=== PATIENT | female | born 1970 | race Caucasian/White ===

== ENCOUNTER 2021-01-23 11:41 | Inpatient (IN) | payer BC ==
[~2021-01-23] VITALS: Ht 167.7 cm; Wt 146.9 kg
[2021-01-23 12:35] LABS: BASOPHILS % (AUTO) 0 % (0-10); EOSINOPHILS % (AUTO) 0 % (0-10); HEMATOCRIT 45 % (35-52); HEMOGLOBIN 13.8 g/dL (11.5-16.0); LYMPHOCYTES # (AUTO) 1.4 10^3/uL (1.0-4.0); LYMPHOCYTES % (AUTO) 17 % (12-44); MEAN CORPUSCULAR HEMOGLOBIN 27 pg (25-34); MEAN CORPUSCULAR HGB CONC 31 g/dL (32-36); MEAN CORPUSCULAR VOLUME 90 fL (80-99); MEAN PLATELET VOLUME 9.6 fL (9.0-12.2); MONOCYTES # (AUTO) 0.3 10^3/uL (0.0-1.0); MONOCYTES % (AUTO) 4 % (0-12); NEUTROPHILS # (AUTO) 6.7 10^3/uL (1.8-7.8); NEUTROPHILS % (AUTO) 79 % (42-75); PLATELET COUNT 266 10^3/uL (130-400); WHITE BLOOD COUNT 8.6 10^3/uL (4.3-11.0)
--- NOTE | 2021-01-23 12:38 | ED General ---
General Chief Complaint: COVID19 Suspect/Confirmed Stated Complaint: COVID+ Source of Information: Patient Exam Limitations: No Limitations (DAVID CRANE APRN) History of Present Illness Date Seen by Provider: Jan 23, 2021 Time Seen by Provider: 12:35 Initial Comments To ER with reports that she is Covid positive and short of breath. She has a headache, poor appetite. This is day 10 of illness. Symptoms started on the and she tested positive on the . She is a non-smoker, not diabetic. She follows with [facility]. She is not vaccinated against Covid. Timing/Duration: 1-2 Days Severity: Moderate Associated Systoms: Denies Symptoms (DAVID CRANE APRN) Allergies and Home Medications Allergies Coded Allergies: Sulfa (Sulfonamide Antibiotics) (Verified Allergy, Unknown, 01/23/21) cantaloupe (Verified Allergy, Unknown, 01/24/21) eucalyptus (Verified Allergy, Unknown, 01/23/21) latex (Verified Allergy, Unknown, 01/23/21) Patient Home Medication List Home Medication List Reviewed: Yes (DAVID CRANE APRN) Cetirizine HCl (Zyrtec) 10 Mg Tablet, 10 MG PO DAILY, (Reported) Entered as Reported by: DELMI EVANS on 01/24/21 1041 Last Action: Reviewed Dexamethasone (Dexamethasone) 2 Mg Tablet, 2 MG PO DAILY Prescribed by: COLT MILLER on 02/01/21 1118 Insulin Determir (Levemir) 1,000 Units/10 Ml Soln, 10 UNIT SQ BID Prescribed by: COLT MILLER on 02/01/21 1118 Review of Systems Review of Systems Constitutional: see HPI, chills, fever, malaise, weakness EENTM: see HPI Respiratory: see HPI, cough, short of breath Cardiovascular: no symptoms reported Genitourinary: no symptoms reported Musculoskeletal: no symptoms reported Skin: no symptoms reported Psychiatric/Neurological: No Symptoms Reported Hematologic/Lymphatic: No Symptoms Reported Immunological/Allergic: no symptoms reported (DAVID CRANE APRN) Physical Exam Vital Signs Capillary Refill : (DAVID CRANE APRN) Height, Weight, BMI Height: '" Weight: lbs. oz. kg; BMI Method: General Appearance: No Apparent Distress, WD/WN, Obese, Other (Oxygen saturation 69% with good waveform on arrival. Increased to 90% with 6 L supplemental.) Neck: Full Range of Motion, Normal Inspection Respiratory: Normal Breath Sounds, No Accessory Muscle Use, No Respiratory Distress Cardiovascular: Regular Rate, Rhythm, Normal Peripheral Pulses Gastrointestinal: Normal Bowel Sounds, Non Tender, Soft Extremity: Normal Capillary Refill, Normal Inspection Neurologic/Psychiatric: Alert, Oriented x3 Skin: Normal Color, Warm/Dry (DAVID CRANE APRN) Focused Exam Lactate Level 01/23/21 12:20: Lactic Acid Level 1.69 (MOO CAPELLAN DO) Lactic Acid Level Laboratory Tests Test 01/23/21 12:20 Lactic Acid Level 1.69 MMOL/L (0.50-2.00) (MOO CAPELLAN DO) Progress/Results/Core Measures Suspected Sepsis SIRS Temperature: Pulse: Respiratory Rate: Laboratory Tests 01/23/21 12:20: White Blood Count 8.6 Blood Pressure / Mean: 01/23/21 12:20: Lactic Acid Level 1.69 Laboratory Tests 01/23/21 12:20: Creatinine 1.17, INR Comment 1.0, Platelet Count 266, Total Bilirubin 0.6 (DAVID CRANE APRN) Results/Orders Lab Results Laboratory Tests Test 01/23/21 10:24 01/23/21 12:20 Range/Units Urine Color YELLOW Urine Clarity SL CLOUDY Urine pH 6.0 5-9 Urine Specific [place] 1.020 1.016-1.022 Urine Protein NEGATIVE NEGATIVE Urine Glucose (UA) 2+ H NEGATIVE Urine Ketones NEGATIVE NEGATIVE Urine Nitrite NEGATIVE NEGATIVE Urine Bilirubin NEGATIVE NEGATIVE Urine Urobilinogen 0.2 < = 1.0 MG/DL Urine Leukocyte Esterase TRACE H NEGATIVE Urine RBC (Auto) 1+ H NEGATIVE Urine RBC 0-2 /HPF Urine WBC 0-2 /HPF Urine Squamous Epithelial Cells NONE /HPF Urine Renal Epithelial Cells NONE /HPF Urine Crystals NONE /LPF Urine Bacteria NEGATIVE /HPF Urine Casts NONE /LPF Urine Mucus NEGATIVE /LPF Urine Culture Indicated NO White Blood Count 8.6 4.3-11.0 10^3/uL Red Blood Count 5.03 3.80-5.11 10^6/uL Hemoglobin 13.8 11.5-16.0 g/dL Hematocrit 45 35-52 % Mean Corpuscular Volume 90 80-99 fL Mean Corpuscular Hemoglobin 27 25-34 pg Mean Corpuscular Hemoglobin Concent 31 L 32-36 g/dL Red Cell Distribution Width 14.5 10.0-14.5 % Platelet Count 266 130-400 10^3/uL Mean Platelet Volume 9.6 9.0-12.2 fL Immature Granulocyte % (Auto) 1 % Neutrophils (%) (Auto) 79 H 42-75 % Lymphocytes (%) (Auto) 17 12-44 % Monocytes (%) (Auto) 4 0-12 % Eosinophils (%) (Auto) 0 0-10 % Basophils (%) (Auto) 0 0-10 % Neutrophils # (Auto) 6.7 1.8-7.8 10^3/uL Lymphocytes # (Auto) 1.4 1.0-4.0 10^3/uL Monocytes # (Auto) 0.3 0.0-1.0 10^3/uL Eosinophils # (Auto) 0.0 0.0-0.3 10^3/uL Basophils # (Auto) 0.0 0.0-0.1 10^3/uL Immature Granulocyte # (Auto) 0.1 0.0-0.1 10^3/uL Prothrombin Time 14.0 12.2-14.7 SEC INR Comment 1.0 0.8-1.4 D-Dimer 1.44 H 0.00-0.49 UG/ML Sodium Level 135 135-145 MMOL/L Potassium Level 4.2 3.6-5.0 MMOL/L Chloride Level 96 L 98-107 MMOL/L Carbon Dioxide Level 26 21-32 MMOL/L Anion Gap 13 5-14 MMOL/L Blood Urea Nitrogen 18 7-18 MG/DL Creatinine 1.17 0.60-1.30 MG/DL Estimat Glomerular Filtration Rate 49 BUN/Creatinine Ratio 15 Glucose Level 187 H 70-105 MG/DL Lactic Acid Level 1.69 0.50-2.00 MMOL/L Calcium Level 9.0 8.5-10.1 MG/DL Corrected Calcium 9.4 8.5-10.1 MG/DL Total Bilirubin 0.6 0.1-1.0 MG/DL Aspartate Amino Transf (AST/SGOT) 71 H 5-34 U/L Alanine Aminotransferase (ALT/SGPT) 31 0-55 U/L Alkaline Phosphatase 72 40-136 U/L C-Reactive Protein High Sensitivity 25.34 H 0.00-0.50 MG/DL Total Protein 8.4 H 6.4-8.2 GM/DL Albumin 3.5 3.2-4.5 GM/DL Procalcitonin 0.45 H <0.10 NG/ML (MOO CAPELLAN DO) Micro Results Microbiology 01/23/21 Blood Culture - Final, Complete Staph, Coag Neg (QUALITY ASSURANCE INSPECTOR) (MOO CAPELLAN DO) Vital Signs/I&O Capillary Refill : (DAVID CRANE APRN) Diagnostic Imaging Diagonstic Imaging: Xray Comments NAME: HIEU FRIAS [facility] REC#: [id number] PT STATUS: REG ER : 1970 PHYSICIAN: DAVID CRANE APRN ADMIT DATE: 01/23/21/ER Draft Date of Exam:01/23/21 CHEST 1 VIEW, AP/PA ONLY INDICATION: Hypoxia. Shortness of air. COMPARISON: None FINDINGS: Single frontal radiograph view of the chest was obtained and shows normal cardiac silhouette. Lungs show diffuse interstitial prominence with scattered patchy areas of more confluent opacity, right greater than left. There is no large effusion or pneumothorax. Osseous structures show no gross acute abnormalities. IMPRESSION: 1. Bilateral diffuse infiltrate. Correlation with Covid-19 status is recommended. Dictated on workstation # [id number] Dict: 01/23/21 1307 Trans: 01/23/21 1310 [id number] Interpreted by: ADRI AGUSTIN MD Electronically signed by: (DAVID CRANE APRN) Departure Communication (Admissions) 1254-increased oxygen requirement up to 8 L per nasal cannula to achieve oxygen saturation of 91%. We will try BiPAP. Initial settings 10/5 60% FiO2. 1304-after a very brief trial she was intolerant of BiPAP. Will switch to Vapotherm to see if she tolerates this better. Ordered codeine for cough but she reports that that makes her hallucinate. 1411-on 40 L 100% FiO2 with oxygen of 96%. Tolerating well anxious about the CT scan. Sitting up in her chair at bedside in no distres. Will order Ativan in prep for CT angio on the way upstairs. . (DAVID CRANE APRN) Impression Primary Impression: COVID-19 Additional Impression: Hypoxia Disposition: ADMITTED INPATIENT Condition: Stable Admissions Decision to Admit Reason: Admit from ER (General) Decision to Admit/Date: Jan 23, 2021 Time/Decision to Admit Time: 13:04 (DAVID CRANE APRN) Departure-Patient Inst. Referrals: NO,LOCAL PHYSICIAN (PCP/Family) Primary Care Physician Scripts Dexamethasone (Dexamethasone) 2 Mg Tablet 2 MG PO DAILY, #6 TAB Take 1 tab x 4 days then 1/2 tab x 4 days Prov: COLT MILLER MD 02/01/21 Insulin Determir (Levemir) 1,000 Units/10 Ml Soln 10 UNIT SQ BID for 30 Days, EA Prov: COLT MILLER MD 02/01/21 ATTENDING PHYSICIAN NOTE: I WAS PHYSICALLY PRESENT ER PHYSICIAN WHEN THIS PATIENT WAS IN ER, BUT I WAS NOT INVOLVED IN DECISION MAKING OR ANY CARE OF THIS PATIENT. (MOO CAPELLAN DO) DAVID CRANE APRN Jan 23, 2021 12:38 MOO CAPELLAN DO Feb 02, 2021 05:47
[2021-01-23] MEDS ORDERED: LACTATED RINGERS 1,000 ML IV SCH (12:45)
[2021-01-23] MEDS ORDERED: KETOROLAC 30 MG/ML VIAL IVP ONE (12:45)
[2021-01-23] MEDS ORDERED: ONDANSETRON 4 MG/2 ML (SDV) Z0FRAN IVP ONE (12:45)
[2021-01-23] MEDS ORDERED: PROMETHAZINE/ CODEINE SYRUP 5 ML UDC PO ONE (12:45)
[2021-01-23 12:48] LABS: FIBRIN DEGRADATION PRODUCTS 1.44 UG/ML (0.00-0.49)
[2021-01-23 13:03] LABS: ALBUMIN 3.5 GM/DL (3.2-4.5); BILIRUBIN,TOTAL 0.6 MG/DL (0.1-1.0); CREATININE SERUM 1.17 MG/DL (0.60-1.30); POTASSIUM 4.2 MMOL/L (3.6-5.0); TOTAL PROTEIN 8.4 GM/DL (6.4-8.2)
--- NOTE | 2021-01-23 13:11 | Diagnostic Imaging Report ---
INDICATION: Hypoxia. Shortness of air. COMPARISON: None FINDINGS: Single frontal radiograph view of the chest was obtained and shows normal cardiac silhouette. Lungs show diffuse interstitial prominence with scattered patchy areas of more confluent opacity, right greater than left. There is no large effusion or pneumothorax. Osseous structures show no gross acute abnormalities. IMPRESSION: 1. Bilateral diffuse infiltrate. Correlation with Covid-19 status is recommended. Dictated by: Dictated on workstation # [id number]
[2021-01-23] MEDS ORDERED: IOHEXOL 350 MG/ML 100 ML (OMNIPAQUE 350) VIAL IV ONE (14:00)
[2021-01-23] MEDS ORDERED: NS 100 ML (IVPB) BAG IV ONE (14:00)
[2021-01-23] MEDS ORDERED: CATHETER FLUSH 10 ML SYR IV PRN (14:00)
[2021-01-23] MEDS ORDERED: cefTRIAXone 1,000 MG in WATER (STERILE) FOR INJECTION 10 ML IV ONE (14:00)
[2021-01-23] MEDS ORDERED: HOLD METFORMIN - RECEIVED CONTRAST 20 ML VIAL IV SCH (14:00)
[2021-01-23] MEDS ORDERED: LORazepam INJ 2 MG/ML (ATIVAN) VIAL IVP PRN (14:15)
--- NOTE | 2021-01-23 15:48 | Diagnostic Imaging Report ---
EXAMINATION: CT angiography of the chest. TECHNIQUE: Contrast enhanced thin section helical images were obtained through the chest with intravenous contrast timed for the optimal opacification of the arterial structures per CTA protocol. Post-processing, reconstructions and interpretation of angiographic images of the vessels was performed. 3D MIP reconstructions were performed and reviewed. All CT scans use one or more of the following dose optimizing techniques: automated exposure control, MA and/or KvP adjustment based on patient size and exam type or iterative reconstruction. HISTORY: Shortness of breath, Covid 19. COMPARISON: None available. FINDINGS: There is no pulmonary embolism. There is moderate Covid 19 pneumonia as evidenced by peribronchial vascular and peripheral groundglass. No pleural effusion. No pneumothorax. There is no axillary or supraclavicular lymphadenopathy. There are mildly enlarged mediastinal lymph nodes which are likely reactive. Heart size is normal. There are mild coronary artery calcifications. No pericardial effusion. Aorta is normal in caliber. Limited views of the upper abdomen show hepatic steatosis. There is no suspicious osseus lesion. IMPRESSION: 1. No pulmonary embolism. 2. Moderate Covid 19 pneumonia. Dictated by: Dictated on workstation # [id number]
--- NOTE | 2021-01-23 15:55 | Tele-ICU Consult ---
History of Present Illness History of Present Illness Date Seen by Provider: Jan 23, 2021 Time Seen by Provider: 15:54 Date of Admission 50 yo F Dx with COVID since 01/13, CXR and CT show bilateral patchy infiltrates, on Rocephin, On vapotherm 40 l FiO2 100%, spont RR 18, SpO2 97%, LA1 65, d dimer 1.44, procalcitonin 0.45 Pt unvaccinated Allergies and Home Medications Allergies Coded Allergies: Sulfa (Sulfonamide Antibiotics) (Verified Allergy, Unknown, 01/23/21) eucalyptus (Verified Allergy, Unknown, 01/23/21) latex (Verified Allergy, Unknown, 01/23/21) Past Medical/Social/Family Hx Current Status Communicates: Verbally Primary Language: Zambian Preferred Spoken Language: Zambian Is interpretation needed?: No Review of Systems Constitutional: see HPI EENTM: see HPI Respiratory: see HPI Cardiovascular: see HPI Gastrointestinal: see HPI Genitourinary: see HPI Musculoskeletal: see HPI Skin: see HPI Psychiatric/Neurological: See HPI Sepsis Event Evaluation Height, Weight, BMI Height: '" Weight: lbs. oz. kg; 51.00 BMI Method: Exam Exam Patient acknowledged, consented, and participated in this virtual visit which was conducted using real time audio/video Vital Signs Date Time Temp Pulse Resp B/P (MAP) Pulse Ox O2 Delivery O2 Flow Rate FiO2 01/23/21 15:52 37.5 90 18 159/106 97 Vapotherm 40.00 100.00 01/23/21 12:10 38.2 87 24 132/86 (101) 92 Nasal Cannula 7.00 Height & Weight Height: '" Weight: lbs. oz. kg; 51.00 BMI Method: General Appearance: No Apparent Distress, WD/WN, Mild Distress, Obese, Other (Oxygen saturation 69% with good waveform on arrival. Increased to 90% with 6 L supplemental.) Neck: Full Range of Motion, Normal Inspection Respiratory: Normal Breath Sounds, No Accessory Muscle Use, No Respiratory Distress, Decreased Breath Sounds Cardiovascular: Regular Rate, Rhythm, Normal Peripheral Pulses, Tachycardia Capillary Refill: Less Than 3 Seconds Gastrointestinal: normal bowel sounds, non tender Extremity: Normal Capillary Refill, Normal Inspection Neurologic/Psychiatric: Alert, Oriented x3 Skin: Normal Color, Warm/Dry Results Lab Laboratory Tests 01/23/21 12:20 Assessment/Plan Assessment/Plan Covid PNA, fairly extensive with high oxygen needs, This is day 10, will monitor closely in MICU for need for BiPAP or intubation.Would start on decadron 6 mg Obesity also an additional complication Critical Care: Critically Ill Patient Time spent with patient (mins): 25 BONI SPIVEY MD Jan 23, 2021 15:55
[2021-01-23] MEDS: ENOXAPARIN 60 MG/0.6 ML (LOVENOX) SYR SC SCH (17:55)
--- NOTE | 2021-01-23 20:45 | History & Physical-Hospitalist ---
History of Present Illness HPI/Chief Complaint Chief complaint: Acute hypoxic respiratory failure History present illness: This is a 50-year-old white female who presented to the ER after several days of symptoms shortness of breath and fever diagnosed with COVID-19 on 01/16/2021 who worsened to the point she could no longer breathe. She was found to have significant hypoxia on ABG. Her morbid obesity of BMI of 52 places her at significant risk for intubation. I tried to summer camp counselor her and update her on this fact but she appears to be in denial and does not absorb this information. She is maxed on Vapotherm likely will require BiPAP and likely intubation. Patient at high risk for within 2 weeks. Source: patient Exam Limitations: clinical condition Date Seen 01/23/21 Time Seen by a Provider: 18:00 Attending Physician Suzanne Swenson DO PCP No,Local Physician Referring Physician Date of Admission Jan 23, 2021 at 13:06 Home Medications & Allergies Home Medications Reviewed patient Home Medication Reconciliation performed by pharmacy medication reconciliations nutrition technician and/or nursing. Patients Allergies have been reviewed. Allergies Allergies Coded Allergies Sulfa (Sulfonamide Antibiotics) (Verified Allergy, Unknown, 01/23/21) eucalyptus (Verified Allergy, Unknown, 01/23/21) latex (Verified Allergy, Unknown, 01/23/21) Past Hjveysb-Xowopn-Eacxtf Hx Patient Social History Marrital Status: Employed/Student: unemployed Tobacco Use?: No Smoking Status: Former Smoker Use of E-Cig and/or Vaping dev: No Substance use?: No Alcohol Use?: No Pt feels they are or have been: No Current Status Advance Directives: No Communicates: Verbally Primary Language: Khmer Preferred Spoken Language: Khmer Is interpretation needed?: No Implanted or Applied Medical D: None Review of Systems Constitutional: see HPI EENTM: no symptoms reported Respiratory: dyspnea on exertion, short of breath Gastrointestinal: no symptoms reported Genitourinary: no symptoms reported Musculoskeletal: no symptoms reported Skin: no symptoms reported Psychiatric/Neurological: No Symptoms Reported All Other Systems Reviewed Negative Unless Noted: Yes Physical Exam Physical Exam Vital Signs Vital Signs - First Documented 01/23/21 01/23/21 12:10 15:53 Temp 38.2 Pulse 87 Resp 24 B/P (MAP) 132/86 (101) Pulse Ox 92 O2 Delivery Nasal Cannula O2 Flow Rate 8.00 FiO2 100 Capillary Refill : Less Than 3 Seconds Height, Weight, BMI Height: '" Weight: lbs. oz. kg; 51.77 BMI Method: General Appearance: No Apparent Distress, Chronically ill, Obese Eyes: Right Eye Normal Inspection, Right Eye PERRL HEENT: PERRL/EOMI, Normal ENT Inspection, Pharynx Normal, Moist Mucous Membranes Neck: Full Range of Motion, Normal Inspection, Non Tender Respiratory: Chest Non Tender, No Accessory Muscle Use, No Respiratory Distress, Decreased Breath Sounds, Wheezing Cardiovascular: Regular Rate, Rhythm, No Edema, No Gallop, No JVD, No Murmur, Normal Peripheral Pulses Gastrointestinal: Normal Bowel Sounds, No Organomegaly, No Pulsatile Mass, Non Tender, Soft Back: Normal Inspection, No CVA Tenderness, No Vertebral Tenderness Extremity: Normal Capillary Refill, Normal Inspection, Normal Range of Motion, Non Tender, No Calf Tenderness, No Pedal Edema Neurologic/Psychiatric: Alert, Oriented x3, No Motor/Sensory Deficits, Normal Mood/Affect Skin: Normal Color, Warm/Dry Lymphatic: No Adenopathy Results Results/Procedures Labs Laboratory Tests 01/23/21 12:20 Patient resulted labs reviewed. Assessment/Plan Admission Diagnosis Assessment: Acute hypoxic respiratory failure COVID-19 pneumonia Morbid obesity BMI 52 Plan: ICU Vapotherm BiPAP High risk for intubation High risk for within 2 weeks Lovenox Decadron Admission Status: Inpatient Order (span 2 midnights) Reason for Inpatient Admission: COVID-19 pneumonia SUZANNE SWENSON DO Jan 23, 2021 20:45
[2021-01-24] MEDS ORDERED: RT-ALBUTEROL HFA 8.5 GM INHALER IH PRN (03:45)
[2021-01-24] MEDS: dexAMETHasone 6 MG TAB (DECADRON) PO SCH (05:21)
[2021-01-24] MEDS: ENOXAPARIN 60 MG/0.6 ML (LOVENOX) SYR SC SCH ×2 (05:21→17:34)
[2021-01-24 06:27] LABS: BASOPHILS % (AUTO) 0 % (0-10); EOSINOPHILS % (AUTO) 0 % (0-10); HEMATOCRIT 41 % (35-52); HEMOGLOBIN 12.4 g/dL (11.5-16.0); LYMPHOCYTES # (AUTO) 1.4 10^3/uL (1.0-4.0); LYMPHOCYTES % (AUTO) 14 % (12-44); MEAN CORPUSCULAR HEMOGLOBIN 27 pg (25-34); MEAN CORPUSCULAR HGB CONC 31 g/dL (32-36); MEAN CORPUSCULAR VOLUME 89 fL (80-99); MEAN PLATELET VOLUME 9.5 fL (9.0-12.2); MONOCYTES # (AUTO) 0.3 10^3/uL (0.0-1.0); MONOCYTES % (AUTO) 3 % (0-12); NEUTROPHILS # (AUTO) 7.8 10^3/uL (1.8-7.8); NEUTROPHILS % (AUTO) 82 % (42-75); PLATELET COUNT 245 10^3/uL (130-400); WHITE BLOOD COUNT 9.6 10^3/uL (4.3-11.0)
[2021-01-24 06:41] LABS: SMEAR SCAN COMMENT YES
[2021-01-24 06:46] LABS: ALBUMIN 3.1 GM/DL (3.2-4.5)
[2021-01-24 06:47] LABS: POTASSIUM 4.4 MMOL/L (3.6-5.0)
[2021-01-24 06:48] LABS: CALCIUM 8.6 MG/DL (8.5-10.1)
[2021-01-24 06:49] LABS: TOTAL PROTEIN 7.2 GM/DL (6.4-8.2)
[2021-01-24 06:51] LABS: BILIRUBIN,TOTAL 0.5 MG/DL (0.1-1.0)
[2021-01-24 06:52] LABS: PHOSPHORUS 3.2 MG/DL (2.3-4.7)
[2021-01-24 06:53] LABS: CREATININE SERUM 1.16 MG/DL (0.60-1.30)
[2021-01-24] MEDS ORDERED: TOCILIZUMAB INJECTION (NON-FOR 800 MG in NS (IVPB) 60 ML IV ONE (10:30)
[2021-01-24] MEDS ORDERED: CETI10TA49 PO (10:41)
--- NOTE | 2021-01-24 11:49 | Tele-ICU Progress Note ---
Subjective Date Seen by a Provider: Jan 24, 2021 Time Seen by a Provider: 11:48 Sepsis Event Evaluation Height, Weight, BMI Height: '" Weight: lbs. oz. kg; 51.77 BMI Method: Focused Exam Lactate Level 01/23/21 12:20: Lactic Acid Level 1.69 Exam Exam Patient acknowledged, consented, and participated in this virtual visit which was conducted using real time audio/video Vital Signs Date Time Temp Pulse Resp B/P (MAP) Pulse Ox O2 Delivery O2 Flow Rate FiO2 01/24/21 11:00 81 32 127/77 96 Vapotherm 40.00 100.00 01/24/21 10:31 92 Vapotherm 40.00 100 01/24/21 10:00 81 27 118/72 94 Vapotherm 40.00 100.00 01/24/21 09:00 82 24 128/84 92 Vapotherm 40.00 100.00 01/24/21 08:21 93 Vapotherm 40.00 100 01/24/21 08:20 37.1 01/24/21 08:00 80 14 127/89 97 Vapotherm 40.00 100.00 01/24/21 07:00 90 115/78 92 Vapotherm 40.00 100.00 01/24/21 06:33 88 01/24/21 06:00 86 13 123/80 92 Vapotherm 40.00 100.00 01/24/21 05:32 Vapotherm 40.00 100.00 01/24/21 05:20 OxyMask 15.00 01/24/21 05:00 86 16 119/72 95 Non Rebreather 15.00 01/24/21 04:16 Non Rebreather 15.00 01/24/21 04:00 94 Vapotherm 40.00 100 01/24/21 04:00 38.2 Vapotherm 40.00 100.00 01/24/21 04:00 92 18 113/75 94 Vapotherm 40.00 100.00 01/24/21 03:26 38.1 100 94 100 01/24/21 03:05 95 Vapotherm 40.00 100 01/24/21 03:00 94 27 132/86 94 Vapotherm 40.00 100.00 01/24/21 02:03 38.1 Vapotherm 40.00 100.00 01/24/21 02:00 93 24 122/55 96 Vapotherm 40.00 100.00 01/24/21 01:00 100 01/24/21 01:00 96 24 113/66 94 Vapotherm 40.00 100.00 01/24/21 00:00 92 Vapotherm 40.00 100 01/24/21 00:00 93 28 125/68 95 Vapotherm 40.00 100.00 01/23/21 23:30 38.2 Vapotherm 40.00 100.00 01/23/21 23:00 94 25 104/56 92 Vapotherm 30.00 90.00 01/23/21 22:26 Vapotherm 30.00 90.00 01/23/21 22:00 93 24 118/56 97 Vapotherm 40.00 100.00 01/23/21 21:00 100 26 109/69 96 Vapotherm 40.00 100.00 01/23/21 20:14 92 Vapotherm 40.00 100 01/23/21 20:00 38.4 98 28 129/98 92 Vapotherm 40.00 100.00 01/23/21 19:52 90 Vapotherm 40.00 100 01/23/21 19:00 97 16 137/88 96 Vapotherm 40.00 100.00 01/23/21 19:00 92 01/23/21 18:00 96 15 150/86 97 Vapotherm 40.00 100.00 01/23/21 17:00 102 23 154/69 98 Vapotherm 40.00 100.00 01/23/21 16:00 92 25 117/100 96 Vapotherm 40.00 100.00 01/23/21 15:53 98 Vapotherm 40.00 100 01/23/21 15:52 37.5 90 18 159/106 97 Vapotherm 40.00 100.00 01/23/21 15:52 90 01/23/21 13:37 86 22 148/99 93 Vapotherm 40.00 01/23/21 12:10 38.2 87 24 132/86 (101) 92 Nasal Cannula 7.00 01/23/21 12:10 Nasal Cannula 8.00 I & O 01/24/21 07:00 Intake Total 1030 ml Output Total 1000 ml Balance 30 ml Height & Weight Height: '" Weight: lbs. oz. kg; 51.77 BMI Method: General Appearance: No Apparent Distress, Chronically ill, Obese HEENT: PERRL/EOMI, Normal ENT Inspection, Pharynx Normal, Moist Mucous Membranes Neck: Full Range of Motion, Normal Inspection, Non Tender Respiratory: Chest Non Tender, No Accessory Muscle Use, No Respiratory Distress, Decreased Breath Sounds, Wheezing Cardiovascular: Regular Rate, Rhythm, No Edema, No Gallop, No JVD, No Murmur, Normal Peripheral Pulses Capillary Refill: Less Than 3 Seconds Gastrointestinal: normal bowel sounds, non tender Extremity: Normal Capillary Refill, Normal Inspection, Normal Range of Motion, Non Tender, No Calf Tenderness, No Pedal Edema Neurologic/Psychiatric: Alert, Oriented x3, No Motor/Sensory Deficits, Normal Mood/Affect Skin: Normal Color, Warm/Dry Lymphatic: No Adenopathy Results Lab Laboratory Tests 01/23/21 12:20 01/24/21 06:12 Assessment/Plan Assessment/Plan (Tele-ICU Physician , Progress Note ) Available chart/ vitals / labs / Images reviewed Video assessment done using teleICU camera, rest of exam as per RN Discussed with RN , EXAM PER RN Events overnight : Afebrile I/O = even Drips: Pressors: , hemodynamically stable Consultants: Hospital course: 01/23- COVID PNA< maxed on Vapotherm 40L 100% , no PE on CT A/P AHRF / ARDS due to severe COVID19 ( CT chest 01/23 - no PE - Vapotherm 40L 100% -prone position if able - conservative fluid strategy (aim for even or negative fluid balance [id number]/COVID-19 PNA ( Not vaccinated , Dx 01/16/2021 ) Actemra - 01/24 -Steroids IV - started -Hypercoagulable state , DDIMER 1. 44 on 01/23 -> lovenox 60 q 12 , follow D dimer ( CT chest 01/23 - no PE Monitor for superimposed bact PNA -PCT 01/25 , OFF abx Hyperglycemia - probably due to steroids , check A1c - ISS , close f/up on steroids morbid obesity of BMI of 52 transaminitis likely due to COVID-19. Lines : (Central Line Necessity Reviewed) Gayle: OG: Nutrition: PO Analgesia: Anxiety/ delirium VTE Prophylaxis: lovenox 60 q 12 Stress Ulcer Propylaxis: Glycemic Control: Plans in collaboration with bedside consultants and IM MDs. Discussed with RN to reach out if any questions or concerns A total of 36 minutes of critical care time was devoted to this patient today, required to treat and/or prevent further deterioration of critical care condition ( as above) . STEPHY BOURNE MD Jan 24, 2021 11:49
--- NOTE | 2021-01-24 11:59 | Progress Note - Hospitalist ---
Subjective HPI/CC On Admission Date Seen by Provider: Jan 24, 2021 Time Seen by Provider: 11:00 Chief complaint: Acute hypoxic respiratory failure History present illness: This is a 50-year-old white female who presented to the ER after several days of symptoms shortness of breath and fever diagnosed with COVID-19 on 01/16/2021 who worsened to the point she could no longer breathe. She was found to have significant hypoxia on ABG. Her morbid obesity of BMI of 52 places her at significant risk for intubation. I tried to extension course counselor her and update her on this fact but she appears to be in denial and does not absorb this information. She is maxed on Vapotherm likely will require BiPAP and likely intubation. Patient at high risk for within 2 weeks. Subjective/Events-last exam Patient about the same Maxed on Vapotherm Sitting up in chair Using incentive spirometer Apologetic about irritability with healthcare providers the day before BMI of 52 precludes anything but a poor prognosis and ventilator in the near future Actemra infused Review of Systems Pulmonary: Dyspnea Focused Exam Lactate Level 01/23/21 12:20: Lactic Acid Level 1.69 Objective Exam Vital Signs Vital Signs Date Time Temp Pulse Resp B/P (MAP) Pulse Ox O2 Delivery O2 Flow Rate FiO2 01/25/21 05:00 36.1 Vapotherm 40.00 100.00 01/25/21 04:00 91 100 01/25/21 01:00 65 01/25/21 00:00 19 Capillary Refill : Less Than 3 Seconds General Appearance: No Apparent Distress, WD/WN, Anxious, Chronically ill, Obese Respiratory: No Accessory Muscle Use, No Respiratory Distress, Decreased Breath Sounds Cardiovascular: Regular Rate, Rhythm Neurologic/Psychiatric: Alert, Oriented x3, No Motor/Sensory Deficits, Normal Mood/Affect Results/Procedures Lab Laboratory Tests 01/24/21 06:12 Patient resulted labs reviewed. Assessment/Plan Assessment and Plan Assess & Plan/Chief Complaint Assessment: Acute hypoxic respiratory failure COVID-19 pneumonia Morbid obesity BMI 53 Plan: Vapotherm BiPAP may be needed will require Precedex in order to tolerate High risk for intubation High risk for within 2 weeks Critical Care Critically Ill Patient JAYLINDULCE FLORES Jan 24, 2021 11:59
[2021-01-24] MEDS: RT-ALBUTEROL HFA 8.5 GM INHALER IH SCH ×3 (16:08→22:08)
[2021-01-24] MEDS: inSUlin ASPART (NovoLOG) 1 UNIT/0.01 ML (CHARGE PER UNIT) SC SCH ×2 (17:34→21:23)
[2021-01-24] MEDS ORDERED: inSUlin (REGULAR) HUMAN 1 UNIT/0.01 ML (CHARGE PER UNIT) SC ONE (21:15)
[2021-01-25] MEDS: RT-ALBUTEROL HFA 8.5 GM INHALER IH SCH ×5 (02:34→22:32)
[2021-01-25] MEDS: dexAMETHasone 6 MG TAB (DECADRON) PO SCH (04:53)
[2021-01-25] MEDS: ENOXAPARIN 60 MG/0.6 ML (LOVENOX) SYR SC SCH ×2 (04:53→18:33)
[2021-01-25] MEDS: inSUlin ASPART (NovoLOG) 1 UNIT/0.01 ML (CHARGE PER UNIT) SC SCH ×4 (04:58→21:25)
[2021-01-25 05:41] LABS: BASOPHILS % (AUTO) 0 % (0-10); EOSINOPHILS % (AUTO) 0 % (0-10); HEMATOCRIT 40 % (35-52); HEMOGLOBIN 12.2 g/dL (11.5-16.0); LYMPHOCYTES % (AUTO) 13 % (12-44); MEAN CORPUSCULAR HEMOGLOBIN 27 pg (25-34); MEAN CORPUSCULAR HGB CONC 31 g/dL (32-36); MEAN CORPUSCULAR VOLUME 88 fL (80-99); MEAN PLATELET VOLUME 9.8 fL (9.0-12.2); MONOCYTES # (AUTO) 0.3 10^3/uL (0.0-1.0); MONOCYTES % (AUTO) 4 % (0-12); NEUTROPHILS % (AUTO) 82 % (42-75); PLATELET COUNT 261 10^3/uL (130-400); WHITE BLOOD COUNT 7.4 10^3/uL (4.3-11.0)
[2021-01-25 05:56] LABS: ALBUMIN 2.9 GM/DL (3.2-4.5); POTASSIUM 4.4 MMOL/L (3.6-5.0)
[2021-01-25 05:57] LABS: CALCIUM 8.7 MG/DL (8.5-10.1)
[2021-01-25 05:59] LABS: TOTAL PROTEIN 7.2 GM/DL (6.4-8.2)
[2021-01-25 06:00] LABS: BILIRUBIN,TOTAL 0.3 MG/DL (0.1-1.0)
[2021-01-25 06:02] LABS: CREATININE SERUM 1.66 MG/DL (0.60-1.30); PHOSPHORUS 4.4 MG/DL (2.3-4.7)
[2021-01-25 06:05] LABS: MAGNESIUM 2.5 MG/DL (1.6-2.4)
[2021-01-25] MEDS ORDERED: PROPOFOL DRIP (ICU) 0 ML IV ONE (09:38)
[2021-01-25] MEDS ORDERED: DexMEDEtomidine 250 ML DRIP 250 ML IV ONE (09:39)
[2021-01-25 09:48] VITALS: BP 128/91
[2021-01-25] MEDS: cefTRIAXone 1,000 MG in WATER (STERILE) FOR INJECTION 10 ML IV SCH (12:24)
[2021-01-25] MEDS: DexMEDEtomidine 250 ML DRIP 250 ML IV SCH (12:25)
--- NOTE | 2021-01-25 12:39 | Progress Note - Hospitalist ---
Subjective HPI/CC On Admission Date Seen by Provider: Jan 25, 2021 Time Seen by Provider: 11:00 Chief complaint: Acute hypoxic respiratory failure History present illness: This is a 50-year-old white female who presented to the ER after several days of symptoms shortness of breath and fever diagnosed with COVID-19 on 01/16/2021 who worsened to the point she could no longer breathe. She was found to have significant hypoxia on ABG. Her morbid obesity of BMI of 52 places her at significant risk for intubation. I tried to debt counselor her and update her on this fact but she appears to be in denial and does not absorb this information. She is maxed on Vapotherm likely will require BiPAP and likely intubation. Patient at high risk for within 2 weeks. Subjective/Events-last exam Patient able to tolerate BiPAP on Precedex Failed Vapotherm Gayle placed Sodium 129 Creatinine 1.66 Focused Exam Lactate Level 01/23/21 12:20: Lactic Acid Level 1.69 Objective Exam Vital Signs Vital Signs Date Time Temp Pulse Resp B/P (MAP) Pulse Ox O2 Delivery O2 Flow Rate FiO2 01/26/21 04:00 91 NIV Bilevel 100 01/26/21 02:43 57 19 100.00 01/26/21 00:00 143/84 01/25/21 23:50 36.6 Capillary Refill : Less Than 3 Seconds General Appearance: Anxious, Chronically ill, Obese Respiratory: No Accessory Muscle Use, No Respiratory Distress, Decreased Breath Sounds Cardiovascular: Regular Rate, Rhythm Results/Procedures Lab Laboratory Tests 01/26/21 05:14 Patient resulted labs reviewed. Assessment/Plan Assessment and Plan Assess & Plan/Chief Complaint Assessment: Acute hypoxic respiratory failure COVID-19 pneumonia Morbid obesity BMI 53 Plan: Vapotherm BiPAP may be needed will require Precedex in order to tolerate High risk for intubation High risk for within 2 weeks 01/25/2021: BiPAP with Precedex High risk for Critical Care Critically Ill Patient DULCE MOSQUEDA DO Jan 25, 2021 12:39
--- NOTE | 2021-01-25 13:23 | Pulmonary Progress Note ---
DAVID [place] MED STUDENT 01/25/21 1323: Subjective Date Seen by a Provider: Jan 25, 2021 Time Seen by a Provider: 07:50 Subjective/Events-last exam Renee states she feels like her vapotherm of 40 LPM + 100% FiO2 is not as effective due to sinus congestion. She states no chest pain, no leg pain, no nausea, no diarrhea, no constipation. She expressed anxiety at the prospect of using a bipap. Sepsis Event Evaluation Height, Weight, BMI Height: '" Weight: lbs. oz. kg; 51.77 BMI Method: Focused Exam Lactate Level 01/23/21 12:20: Lactic Acid Level 1.69 Exam Exam Patient acknowledged, consented, and participated in this virtual visit which was conducted using real time audio/video Vital Signs Date Time Temp Pulse Resp B/P (MAP) Pulse Ox O2 Delivery O2 Flow Rate FiO2 01/25/21 13:00 53 14 143/93 93 NIV Bilevel 90.00 01/25/21 12:51 54 01/25/21 12:25 50 148/95 01/25/21 12:00 52 22 148/95 95 NIV Bilevel 90.00 01/25/21 12:00 36.3 01/25/21 11:00 56 22 125/79 91 NIV Bilevel 90.00 01/25/21 10:00 75 30 165/98 94 NIV Bilevel 90.00 01/25/21 09:48 82 22 92 90.00 01/25/21 09:00 58 17 128/91 92 Vapotherm 40.00 100.00 01/25/21 08:00 74 9 131/77 90 Vapotherm 40.00 100.00 01/25/21 07:17 84 Vapotherm 40.00 100 01/25/21 07:00 80 01/25/21 07:00 78 12 131/77 92 Vapotherm 40.00 100.00 01/25/21 06:00 61 20 112/61 94 Vapotherm 40.00 100.00 01/25/21 05:00 73 19 122/71 91 Vapotherm 40.00 100.00 01/25/21 05:00 36.1 Vapotherm 40.00 100.00 01/25/21 04:00 68 18 117/70 91 Vapotherm 40.00 100.00 01/25/21 04:00 91 Vapotherm 40.00 100 01/25/21 03:00 72 20 115/71 90 Vapotherm 40.00 100.00 01/25/21 02:34 Vapotherm 40.00 100 01/25/21 02:00 64 19 107/60 90 Vapotherm 40.00 100.00 01/25/21 01:00 65 19 108/58 93 Vapotherm 40.00 100.00 01/25/21 01:00 65 01/25/21 00:10 36.6 Vapotherm 40.00 100.00 01/25/21 00:10 96 Vapotherm 40.00 100 01/25/21 00:00 68 19 117/61 94 Vapotherm 40.00 100.00 01/24/21 23:00 77 19 118/69 96 Vapotherm 40.00 100.00 01/24/21 22:08 91 Vapotherm 40.00 100 01/24/21 22:00 84 20 135/80 96 Vapotherm 40.00 100.00 01/24/21 21:00 75 19 154/80 89 Vapotherm 40.00 100.00 01/24/21 20:00 74 19 143/76 94 Vapotherm 40.00 100.00 01/24/21 19:40 92 Vapotherm 40.00 100 01/24/21 19:40 36.7 Vapotherm 40.00 100.00 01/24/21 19:38 36.0 01/24/21 19:00 85 01/24/21 19:00 85 16 143/85 93 Vapotherm 40.00 100.00 01/24/21 18:00 86 12 132/82 89 Vapotherm 40.00 100.00 01/24/21 17:00 80 19 152/86 98 Vapotherm 40.00 100.00 01/24/21 16:09 91 Vapotherm 40.00 100 01/24/21 16:00 93 Vapotherm 40.00 100 01/24/21 16:00 77 22 144/79 90 Vapotherm 40.00 100.00 01/24/21 15:00 75 11 124/74 94 Vapotherm 40.00 100.00 01/24/21 14:00 82 48 151/88 89 Vapotherm 40.00 100.00 I & O 01/25/21 07:00 Intake Total 1800 ml Output Total 1500 ml Balance 300 ml Height & Weight Height: '" Weight: lbs. oz. kg; 51.77 BMI Method: General Appearance: WD/WN, Anxious, Chronically ill, Obese, Other (on vapotherm 40LPM 100% FiO2) HEENT: PERRL/EOMI, Normal ENT Inspection, Pharynx Normal, Moist Mucous Membran es Neck: Full Range of Motion, Normal Inspection, Non Tender Respiratory: No Accessory Muscle Use, Decreased Breath Sounds (nearly absent breath sounds. ); No Stridor, No Wheezing; Other (mild tachypnea. on vapotherm ) Cardiovascular: Regular Rate, Rhythm Capillary Refill: Less Than 3 Seconds Gastrointestinal: normal bowel sounds, non tender, soft Extremity: Normal Capillary Refill, Normal Inspection, Normal Range of Motion, Non Tender, No Calf Tenderness, No Pedal Edema Neurologic/Psychiatric: Alert, Oriented x3, No Motor/Sensory Deficits, Normal Mood/Affect Skin: Normal Color, Warm/Dry Lymphatic: No Adenopathy Results Lab Laboratory Tests 01/24/21 06:12 01/25/21 05:25 Assessment/Plan Assessment/Plan Covid-19 Acute respiratory failure/ARDS -on vapotherm 80 + 100 at time of exam. Has since been placed on bipap with precedex -Albuterol treatments Hyperglycemia -steroids likely contributory. Anion gap of 14 is at upper limit of normal -on sliding scale. Adjusted to more aggressive sliding scale. -A1C pending Hyponatremia -related to hyperglycemia AL -creatinine 1.66 from 1.19 yesterday -IV fluids morbid obesity DVT/PE prophylaxis -Lovenox 60 BID anxiety supportive care, guarded prognosis patient is full code STEPHY BOURNE MD 01/25/217: Supervisory-Addendum Brief Verification & Attestation Participated in pt care: history, MDM, physical Personally performed: history, MDM, supervision of care Care discussed with: Medical Student Procedures: n/a A medical student performed and documented this service. I reviewed all information documented by the medical student and made modifications to such information, when appropriate. Medical student performed patients physical exam. Medical decision making was done during tele-rounds with this medical student and a bedside RN . DAVID [place] MED STUDENT Jan 25, 2021 13:23 STEPHY BOURNE MD Jan 25, 2021 19:17
--- NOTE | 2021-01-25 15:46 | Tele-ICU Progress Note ---
Subjective Date Seen by a Provider: Jan 25, 2021 Time Seen by a Provider: 15:44 Sepsis Event Evaluation Height, Weight, BMI Height: '" Weight: lbs. oz. kg; 51.77 BMI Method: Focused Exam Lactate Level 01/23/21 12:20: Lactic Acid Level 1.69 Exam Exam Patient acknowledged, consented, and participated in this virtual visit which was conducted using real time audio/video Vital Signs Date Time Temp Pulse Resp B/P (MAP) Pulse Ox O2 Delivery O2 Flow Rate FiO2 01/25/21 15:37 88 Vapotherm 40.00 100 01/25/21 15:00 65 23 140/76 89 NIV Bilevel 90.00 01/25/21 14:00 64 28 116/69 94 NIV Bilevel 90.00 01/25/21 13:00 53 14 143/93 93 NIV Bilevel 90.00 01/25/21 12:51 54 01/25/21 12:25 50 148/95 01/25/21 12:00 52 22 148/95 95 NIV Bilevel 90.00 01/25/21 12:00 36.3 01/25/21 11:00 56 22 125/79 91 NIV Bilevel 90.00 01/25/21 10:00 75 30 165/98 94 NIV Bilevel 90.00 01/25/21 09:48 82 22 92 90.00 01/25/21 09:00 58 17 128/91 92 Vapotherm 40.00 100.00 01/25/21 08:00 74 9 131/77 90 Vapotherm 40.00 100.00 01/25/21 07:17 84 Vapotherm 40.00 100 01/25/21 07:00 80 01/25/21 07:00 78 12 131/77 92 Vapotherm 40.00 100.00 01/25/21 06:00 61 20 112/61 94 Vapotherm 40.00 100.00 01/25/21 05:00 73 19 122/71 91 Vapotherm 40.00 100.00 01/25/21 05:00 36.1 Vapotherm 40.00 100.00 01/25/21 04:00 68 18 117/70 91 Vapotherm 40.00 100.00 01/25/21 04:00 91 Vapotherm 40.00 100 01/25/21 03:00 72 20 115/71 90 Vapotherm 40.00 100.00 01/25/21 02:34 Vapotherm 40.00 100 01/25/21 02:00 64 19 107/60 90 Vapotherm 40.00 100.00 01/25/21 01:00 65 19 108/58 93 Vapotherm 40.00 100.00 01/25/21 01:00 65 01/25/21 00:10 36.6 Vapotherm 40.00 100.00 01/25/21 00:10 96 Vapotherm 40.00 100 01/25/21 00:00 68 19 117/61 94 Vapotherm 40.00 100.00 01/24/21 23:00 77 19 118/69 96 Vapotherm 40.00 100.00 01/24/21 22:08 91 Vapotherm 40.00 100 01/24/21 22:00 84 20 135/80 96 Vapotherm 40.00 100.00 01/24/21 21:00 75 19 154/80 89 Vapotherm 40.00 100.00 01/24/21 20:00 74 19 143/76 94 Vapotherm 40.00 100.00 01/24/21 19:40 92 Vapotherm 40.00 100 01/24/21 19:40 36.7 Vapotherm 40.00 100.00 01/24/21 19:38 36.0 01/24/21 19:00 85 01/24/21 19:00 85 16 143/85 93 Vapotherm 40.00 100.00 01/24/21 18:00 86 12 132/82 89 Vapotherm 40.00 100.00 01/24/21 17:00 80 19 152/86 98 Vapotherm 40.00 100.00 01/24/21 16:09 91 Vapotherm 40.00 100 01/24/21 16:00 93 Vapotherm 40.00 100 01/24/21 16:00 77 22 144/79 90 Vapotherm 40.00 100.00 I & O 01/25/21 07:00 Intake Total 1800 ml Output Total 1500 ml Balance 300 ml Height & Weight Height: '" Weight: lbs. oz. kg; 51.77 BMI Method: General Appearance: WD/WN, Anxious, Chronically ill, Obese, Other (on vapotherm 40LPM 100% FiO2) HEENT: PERRL/EOMI, Normal ENT Inspection, Pharynx Normal, Moist Mucous Membranes Neck: Full Range of Motion, Normal Inspection, Non Tender Respiratory: No Accessory Muscle Use, Decreased Breath Sounds (nearly absent breath sounds. ); No Stridor, No Wheezing; Other (mild tachypnea. on vapotherm ) Cardiovascular: Regular Rate, Rhythm Capillary Refill: Less Than 3 Seconds Gastrointestinal: normal bowel sounds, non tender, soft Extremity: Normal Capillary Refill, Normal Inspection, Normal Range of Motion, Non Tender, No Calf Tenderness, No Pedal Edema Neurologic/Psychiatric: Alert, Oriented x3, No Motor/Sensory Deficits, Normal Mood/Affect Skin: Normal Color, Warm/Dry Lymphatic: No Adenopathy Results Lab Laboratory Tests 01/24/21 06:12 01/25/21 05:25 Assessment/Plan Assessment/Plan (Tele-ICU Physician , Progress Note ) Available chart/ vitals / labs / Images reviewed Video assessment done using teleICU camera, rest of exam as per RN Discussed with RN , EXAM PER RN Events overnight : Afebrile I/O = even Drips: Pressors: , hemodynamically stable Consultants: Hospital course: 01/23- COVID PNA< maxed on Vapotherm 40L 100% , no PE on CT A/P AHRF / ARDS due to severe COVID19 ( CT chest 01/23 - no PE - Vapotherm 40L 100% - desating - will try BIPAP today (18/02 rr 28 [id number] V 17L -prone position if able - conservative fluid strategy (aim for even or negative fluid balance [id number]/[id number]-19 PNA ( Not vaccinated , Dx 01/16/2021 ) Actemra - 01/24 -Steroids IV - started -Hypercoagulable state , DDIMER 1. 44 on 01/23 -> lovenox 60 q 12 , follow D dimer ( CT chest 01/23 - no PE Monitor for superimposed bact PNA -PCT 01/25 o.5 -> starting cefepime Hyperglycemia - probably due to steroids , check A1c - ISS , close f/up on steroids morbid obesity of BMI of 52 transaminitis likely due to COVID-19. Lines : (Central Line Necessity Reviewed) Gayle: OG: Nutrition: PO Analgesia: Anxiety/ delirium VTE Prophylaxis: lovenox 60 q 12 Stress Ulcer Propylaxis: Glycemic Control: Plans in collaboration with bedside consultants and IM MDs. Discussed with RN to reach out if any questions or concerns A total of 36 minutes of critical care time was devoted to this patient today, required to treat and/or prevent further deterioration of critical care condition ( as above) . STEPHY BOURNE MD Jan 25, 2021 15:46
[2021-01-25 16:12] LABS: BILIRUBIN,URINE NEGATIVE (NEGATIVE); CLARITY,URINE SL CLOUDY; COLOR,URINE YELLOW; GLUCOSE, URINE (UA) 2+ (NEGATIVE); KETONES,URINE NEGATIVE (NEGATIVE); LEUKOCYTE ESTERASE ,URINE TRACE (NEGATIVE); NITRITE,URINE NEGATIVE (NEGATIVE); PROTEIN,URINE NEGATIVE (NEGATIVE)
[2021-01-25 16:28] LABS: BACTERIA,URINE NEGATIVE /HPF; RBC,URINE 0-2 /HPF; WBC,URINE 0-2 /HPF
[2021-01-25 19:44] VITALS: BP 140/83
[2021-01-25] MEDS ORDERED: inSUlin ASPART (NovoLOG) 1 UNIT/0.01 ML (CHARGE PER UNIT) SC ONE (21:15)
[2021-01-25 22:32] VITALS: BP 146/97
[2021-01-26 02:43] VITALS: BP 145/92
[2021-01-26] MEDS: RT-ALBUTEROL HFA 8.5 GM INHALER IH SCH ×6 (02:43→22:33)
[2021-01-26] MEDS: ENOXAPARIN 60 MG/0.6 ML (LOVENOX) SYR SC SCH ×2 (05:49→17:31)
[2021-01-26] MEDS: inSUlin ASPART (NovoLOG) 1 UNIT/0.01 ML (CHARGE PER UNIT) SC SCH ×3 (05:50→16:03)
[2021-01-26 05:51] LABS: BASOPHILS % (AUTO) 0 % (0-10); EOSINOPHILS % (AUTO) 0 % (0-10); HEMATOCRIT 42 % (35-52); LYMPHOCYTES # (AUTO) 1.1 10^3/uL (1.0-4.0); LYMPHOCYTES % (AUTO) 12 % (12-44); MEAN CORPUSCULAR HEMOGLOBIN 27 pg (25-34); MEAN CORPUSCULAR HGB CONC 31 g/dL (32-36); MEAN CORPUSCULAR VOLUME 88 fL (80-99); MEAN PLATELET VOLUME 9.8 fL (9.0-12.2); MONOCYTES # (AUTO) 0.5 10^3/uL (0.0-1.0); MONOCYTES % (AUTO) 5 % (0-12); NEUTROPHILS # (AUTO) 7.7 10^3/uL (1.8-7.8); NEUTROPHILS % (AUTO) 82 % (42-75); PLATELET COUNT 286 10^3/uL (130-400); WHITE BLOOD COUNT 9.4 10^3/uL (4.3-11.0)
[2021-01-26 06:04] LABS: ALBUMIN 3.1 GM/DL (3.2-4.5)
[2021-01-26 06:05] LABS: CALCIUM 9.5 MG/DL (8.5-10.1)
[2021-01-26 06:06] LABS: TOTAL PROTEIN 7.5 GM/DL (6.4-8.2)
[2021-01-26 06:08] LABS: BILIRUBIN,TOTAL 0.2 MG/DL (0.1-1.0)
[2021-01-26 06:09] LABS: PHOSPHORUS 3.9 MG/DL (2.3-4.7)
[2021-01-26 06:10] LABS: CREATININE SERUM 1.27 MG/DL (0.60-1.30)
[2021-01-26 06:13] LABS: MAGNESIUM 2.7 MG/DL (1.6-2.4)
[2021-01-26] MEDS: dexAMETHasone 6 MG TAB (DECADRON) PO SCH (06:52)
[2021-01-26 07:38] VITALS: BP 173/104
--- NOTE | 2021-01-26 07:53 | Progress Note - Hospitalist ---
Subjective HPI/CC On Admission Date Seen by Provider: Jan 26, 2021 Time Seen by Provider: 11:00 Chief complaint: Acute hypoxic respiratory failure History present illness: This is a 50-year-old white female who presented to the ER after several days of symptoms shortness of breath and fever diagnosed with COVID-19 on 01/16/2021 who worsened to the point she could no longer breathe. She was found to have significant hypoxia on ABG. Her morbid obesity of BMI of 52 places her at significant risk for intubation. I tried to counselor dormitory her and update her on this fact but she appears to be in denial and does not absorb this information. She is maxed on Vapotherm likely will require BiPAP and likely intubation. Patient at high risk for within 2 weeks. Subjective/Events-last exam Patient doing a lot better Lying on her right side Still high risk for intubation and Maintain on BiPAP Precedex maintained Has a lot of complaints of which I had to tell her to limit her conversation due to hypoxia caused Refuses to prone Senna and MiraLAX will be given Cannot seem to get along with any nurses Updated spouse who had [id number] with him and spent 15 minutes on the phone answering all their questions. Tried to answer everything to their satisfaction. Multiple questions from each at the same time during the conversation was difficult to follow each and every one of them. Review of Systems Pulmonary: Dyspnea Focused Exam Lactate Level Objective Exam Vital Signs Vital Signs Date Time Temp Pulse Resp B/P (MAP) Pulse Ox O2 Delivery O2 Flow Rate FiO2 01/26/21 15:43 60 20 94 70.00 01/26/21 15:00 175/104 NIV Bilevel 01/26/21 11:29 35.3 01/26/21 08:00 100 Capillary Refill : Less Than 3 Seconds General Appearance: WD/WN, Anxious, Chronically ill, Mild Distress Respiratory: No Accessory Muscle Use, No Respiratory Distress, Decreased Breath Sounds Cardiovascular: Regular Rate, Rhythm Neurologic/Psychiatric: Alert, Oriented x3 Results/Procedures Lab Laboratory Tests 01/26/21 05:14 Patient resulted labs reviewed. Assessment/Plan Assessment and Plan Assess & Plan/Chief Complaint Assessment: Acute hypoxic respiratory failure COVID-19 pneumonia Morbid obesity BMI 53 Plan: Vapotherm BiPAP may be needed will require Precedex in order to tolerate High risk for intubation High risk for within 2 weeks 01/25/2021: BiPAP with Precedex High risk for 01/26/2021: Continue BiPAP with Precedex High risk for intubation and Critical Care Critically Ill Patient DULCE MOSQUEDA DO Jan 26, 2021 07:53
[2021-01-26] MEDS: cefTRIAXone 1,000 MG in WATER (STERILE) FOR INJECTION 10 ML IV SCH (08:34)
[2021-01-26] MEDS: DexMEDEtomidine 250 ML DRIP 250 ML IV SCH (08:43)
--- NOTE | 2021-01-26 10:15 | Tele-ICU Progress Note ---
Subjective Date Seen by a Provider: Jan 26, 2021 Time Seen by a Provider: 09:32 Subjective/Events-last exam This virtual visit was conducted using real time audio/video. Thank you for asking us to see this patient for respiratory insufficiency and distress due to Covid pna. Unvaccinated. HPC: Recent events: O2 needs increased overnight, now decreasing. PE: Morbidly obese. VSS. O2 sat 92% on BiPAP 18/10 85%. HEENT: No obvious masses, adenopathy or JVD. Chest: clear to auscultation. CV: RRR S1 S2 No murmur or added sounds. Abd: Non-tender. Bowel sounds Y. : Unremarkable. Gayle Y. 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 No obvious focal findings. Extremities: Trace edema. Capillary refill < 3 seconds. Skin: unremarkable. Results: Elevated BUN 42, BG 359. Decreased Alb 3.1. CXR w B infilts. CTA chest w no PE. A/P: Respiratory insufficiency/distress: Wean O2 as celestina. Available chart/ vitals / labs /images reviewed. Video assessment done using teleICU camera, rest of exam as per RN. Critical Care: critically ill patient. Cont Albuterol, Rocephin, Precedex, insulin, Dex., Nicole. Add PPI. Discussed with LUCY Barros. Asked RN to reach out to eICU if any questions or concerns later. Time spent with patient/coordination of care with other health professionals (mins): 52 Sepsis Event Evaluation Height, Weight, BMI Height: '" Weight: lbs. oz. kg; 51.77 BMI Method: Focused Exam Lactate Level 01/23/21 12:20: Lactic Acid Level 1.69 Exam Exam Patient acknowledged, consented, and participated in this virtual visit which was conducted using real time audio/video Vital Signs Date Time Temp Pulse Resp B/P (MAP) Pulse Ox O2 Delivery O2 Flow Rate FiO2 01/26/21 09:00 52 23 171/102 94 NIV Bilevel 100.00 01/26/21 08:43 44 162/92 01/26/21 08:03 35.0 01/26/21 08:00 94 NIV Bilevel 100 01/26/21 08:00 44 21 162/92 93 NIV Bilevel 100.00 01/26/21 07:38 55 30 99 100.00 01/26/21 07:00 54 21 173/104 92 NIV Bilevel 100.00 01/26/21 07:00 44 01/26/21 06:00 52 25 162/97 94 NIV Bilevel 100.00 01/26/21 05:00 45 21 146/96 96 NIV Bilevel 100.00 01/26/21 04:00 46 19 147/91 91 NIV Bilevel 100.00 01/26/21 04:00 91 NIV Bilevel 100 01/26/21 03:00 49 20 143/88 91 NIV Bilevel 100.00 01/26/21 02:43 57 19 92 100.00 01/26/21 02:00 50 15 145/92 91 NIV Bilevel 100.00 01/26/21 01:00 48 18 145/88 90 NIV Bilevel 100.00 01/26/21 01:00 48 01/26/21 00:00 55 18 143/84 90 NIV Bilevel 100.00 01/26/21 00:00 93 NIV Bilevel 100 01/25/21 23:50 36.6 55 22 150/89 92 NIV Bilevel 100.00 01/25/21 23:00 61 19 150/89 92 NIV Bilevel 100.00 01/25/21 22:32 58 20 92 100.00 01/25/21 22:00 53 23 146/97 90 NIV Bilevel 95.00 01/25/21 21:00 65 23 136/84 92 NIV Bilevel 95.00 01/25/21 20:20 NIV Bilevel 95.00 01/25/21 20:20 36.0 NIV Bilevel 95.00 01/25/21 20:00 91 Vapotherm 40.00 100 01/25/21 20:00 73 23 131/72 92 NIV Bilevel 95.00 01/25/21 19:44 36.3 63 88 100 01/25/21 19:01 88 Vapotherm 40.00 100 01/25/21 19:00 52 19 135/84 88 NIV Bilevel 95.00 01/25/21 19:00 52 01/25/21 18:00 55 22 140/83 92 NIV Bilevel 95.00 01/25/21 17:00 58 23 153/89 88 NIV Bilevel 95.00 01/25/21 16:00 91 NIV Bilevel 90 01/25/21 16:00 74 27 110/75 83 NIV Bilevel 95.00 01/25/21 15:59 NIV Bilevel 95.00 01/25/21 15:37 88 Vapotherm 40.00 100 01/25/21 15:00 65 23 140/76 89 NIV Bilevel 90.00 01/25/21 14:00 64 28 116/69 94 NIV Bilevel 90.00 01/25/21 13:00 53 14 143/93 93 NIV Bilevel 90.00 01/25/21 12:51 54 01/25/21 12:25 50 148/95 01/25/21 12:00 91 NIV Bilevel 90 01/25/21 12:00 52 22 148/95 95 NIV Bilevel 90.00 01/25/21 12:00 36.3 01/25/21 11:00 56 22 125/79 91 NIV Bilevel 90.00 I & O 01/26/21 07:00 Intake Total 1280 ml Output Total 1700 ml Balance -420 ml Height & Weight Height: '" Weight: lbs. oz. kg; 51.77 BMI Method: General Appearance: Anxious, Chronically ill, Obese HEENT: PERRL/EOMI, Normal ENT Inspection, Pharynx Normal, Moist Mucous Membranes Neck: Full Range of Motion, Normal Inspection, Non Tender Respiratory: No Accessory Muscle Use, No Respiratory Distress, Decreased Breath Sounds Cardiovascular: Regular Rate, Rhythm Capillary Refill: Less Than 3 Seconds Peripheral Pulses: 1+ Dorsalis Pedis (R), 1+ Left Dors-Pedis (L) Gastrointestinal: normal bowel sounds, non tender, soft Extremity: Normal Capillary Refill, Normal Inspection, Normal Range of Motion, Non Tender, No Calf Tenderness, No Pedal Edema Neurologic/Psychiatric: Alert, Oriented x3, No Motor/Sensory Deficits, Normal Mood/Affect Skin: Normal Color, Warm/Dry Lymphatic: No Adenopathy Results Lab Laboratory Tests 01/25/21 05:25 01/26/21 05:14 Assessment/Plan Assessment/Plan See free text. Critical Care: Critically Ill Patient LOUIS SCHWARTZ MD Jan 26, 2021 10:15
[2021-01-26 11:23] VITALS: BP 159/86
[2021-01-26 15:43] VITALS: BP 175/104
[2021-01-26 18:53] VITALS: BP 156/87
[2021-01-26 22:33] VITALS: BP 178/100
[2021-01-27] MEDS: inSUlin ASPART (NovoLOG) 1 UNIT/0.01 ML (CHARGE PER UNIT) SC SCH ×5 (00:56→21:14)
[2021-01-27 02:33] VITALS: BP 184/106
[2021-01-27] MEDS: RT-ALBUTEROL HFA 8.5 GM INHALER IH SCH ×6 (02:33→22:12)
[2021-01-27 05:20] LABS: BASOPHILS % (AUTO) 0 % (0-10); EOSINOPHILS % (AUTO) 0 % (0-10); HEMATOCRIT 45 % (35-52); HEMOGLOBIN 13.9 g/dL (11.5-16.0); LYMPHOCYTES # (AUTO) 1.1 10^3/uL (1.0-4.0); LYMPHOCYTES % (AUTO) 16 % (12-44); MEAN CORPUSCULAR HEMOGLOBIN 27 pg (25-34); MEAN CORPUSCULAR HGB CONC 31 g/dL (32-36); MEAN CORPUSCULAR VOLUME 87 fL (80-99); MEAN PLATELET VOLUME 9.3 fL (9.0-12.2); MONOCYTES # (AUTO) 0.5 10^3/uL (0.0-1.0); MONOCYTES % (AUTO) 7 % (0-12); NEUTROPHILS # (AUTO) 5.4 10^3/uL (1.8-7.8); NEUTROPHILS % (AUTO) 76 % (42-75); PLATELET COUNT 316 10^3/uL (130-400); WHITE BLOOD COUNT 7.1 10^3/uL (4.3-11.0)
[2021-01-27 05:50] LABS: ALBUMIN 2.9 GM/DL (3.2-4.5)
[2021-01-27 05:51] LABS: POTASSIUM 4.6 MMOL/L (3.6-5.0)
[2021-01-27 05:52] LABS: CALCIUM 9.5 MG/DL (8.5-10.1)
[2021-01-27 05:53] LABS: TOTAL PROTEIN 6.9 GM/DL (6.4-8.2)
[2021-01-27 05:55] LABS: BILIRUBIN,TOTAL 0.3 MG/DL (0.1-1.0)
[2021-01-27 05:56] LABS: PHOSPHORUS 3.7 MG/DL (2.3-4.7)
[2021-01-27 05:59] LABS: MAGNESIUM 2.3 MG/DL (1.6-2.4)
[2021-01-27] MEDS: dexAMETHasone 6 MG TAB (DECADRON) PO SCH (06:32)
[2021-01-27] MEDS: ENOXAPARIN 60 MG/0.6 ML (LOVENOX) SYR SC SCH ×2 (06:32→16:38)
--- NOTE | 2021-01-27 06:44 | Progress Note - Hospitalist ---
Subjective HPI/CC On Admission Date Seen by Provider: Jan 27, 2021 Time Seen by Provider: 12:00 Chief complaint: Acute hypoxic respiratory failure History present illness: This is a 50-year-old white female who presented to the ER after several days of symptoms shortness of breath and fever diagnosed with COVID-19 on 01/16/2021 who worsened to the point she could no longer breathe. She was found to have significant hypoxia on ABG. Her morbid obesity of BMI of 52 places her at significant risk for intubation. I tried to extension course counselor her and update her on this fact but she appears to be in denial and does not absorb this information. She is maxed on Vapotherm likely will require BiPAP and likely intubation. Patient at high risk for within 2 weeks. Subjective/Events-last exam Patient about the same Maintain on Vapotherm 40 L at 60% Was on BiPAP at 55% this morning Bowels are moving Monitoring closely High risk for intubation due to morbid obesity BMI 52 Review of Systems General: Fatigue, Malaise Pulmonary: Dyspnea Objective Exam Vital Signs Vital Signs Date Time Temp Pulse Resp B/P (MAP) Pulse Ox O2 Delivery O2 Flow Rate FiO2 01/27/21 21:15 NIV Bilevel 45.00 01/27/21 19:35 93 100 01/27/21 19:34 35.7 82 18 125/85 Capillary Refill : Less Than 3 Seconds General Appearance: No Apparent Distress, WD/WN, Anxious, Chronically ill, Obese Respiratory: Lungs Clear, Normal Breath Sounds, Decreased Breath Sounds Cardiovascular: Regular Rate, Rhythm Neurologic/Psychiatric: Alert, Oriented x3 Results/Procedures Lab Laboratory Tests 01/27/21 04:55 Patient resulted labs reviewed. Assessment/Plan Assessment and Plan Assess & Plan/Chief Complaint Assessment: Acute hypoxic respiratory failure COVID-19 pneumonia Morbid obesity BMI 53 Plan: Vapotherm BiPAP may be needed will require Precedex in order to tolerate High risk for intubation High risk for within 2 weeks 01/25/2021: BiPAP with Precedex High risk for 01/26/2021: Continue BiPAP with Precedex High risk for intubation and 01/27/2021: Supportive care High risk for intubation Critical Care Critically Ill Patient JAYLINDULCE FLORES Jan 27, 2021 06:44
[2021-01-27 07:22] VITALS: BP 164/97
--- NOTE | 2021-01-27 08:44 | Tele-ICU Progress Note ---
Subjective Date Seen by a Provider: Jan 27, 2021 Time Seen by a Provider: 07:40 Subjective/Events-last exam This virtual visit was conducted using real time audio/video. Thank you for asking us to see this patient for respiratory insufficiency and distress due to Covid pna. Unvaccinated. HPC: Recent events: O2 needs decreasing to 55%. PE: Morbidly obese. Resting comfortably. VSS. O2 sat 94% on BiPAP 18/10 55%. HEENT: No obvious masses, adenopathy or JVD. Chest: clear to auscultation. CV: RRR S1 S2 No murmur or added sounds. Abd: Non-tender. Bowel sounds Y. : Unremarkable. Gayle Y. SCABBLER/psychiatric: Alert and oriented, grossly intact. No obvious focal findings. Extremities: Trace edema. Capillary refill < 3 seconds. Skin: unremarkable. Results: Elevated BUN 40, BG 218. Decreased Alb 3.1. D-dimer 1.44. CXR w B infilts. CTA chest w no PE. A/P: Respiratory insufficiency/distress: Wean O2 as celestina. Available chart/ vitals / labs /images reviewed. Video assessment done using teleICU camera, rest of exam as per RN. Critical Care: critically ill patient. Cont Albuterol, Rocephin, Precedex, in sulin, Dex., Nicole. Added PPI 01/26. Discussed with RN Amy. Asked RN to reach out to eICU if any questions or concerns later. Time spent with patient/coordination of care with other health professionals (mins): 20 Sepsis Event Evaluation Height, Weight, BMI Height: '" Weight: lbs. oz. kg; 51.77 BMI Method: Exam Exam Patient acknowledged, consented, and participated in this virtual visit which was conducted using real time audio/video Vital Signs Date Time Temp Pulse Resp B/P (MAP) Pulse Ox O2 Delivery O2 Flow Rate FiO2 01/27/21 08:00 44 18 152/98 93 NIV Bilevel 100.00 01/27/21 07:22 80 16 91 55.00 01/27/21 07:00 45 01/27/21 07:00 52 16 164/97 91 NIV Bilevel 100.00 01/27/21 06:00 57 19 176/103 95 NIV Bilevel 100.00 01/27/21 05:00 57 16 175/101 86 NIV Bilevel 100.00 01/27/21 04:00 36.5 52 16 141/73 81 NIV Bilevel 100.00 01/27/21 04:00 95 NIV Bilevel 70 01/27/21 04:00 45 19 174/95 96 NIV Bilevel 100.00 01/27/21 03:00 48 23 180/101 96 NIV Bilevel 100.00 01/27/21 02:33 50 17 93 55.00 01/27/21 02:00 36.8 01/27/21 02:00 55 16 184/106 93 NIV Bilevel 100.00 01/27/21 01:00 48 01/27/21 01:00 48 17 184/108 97 NIV Bilevel 100.00 01/27/21 00:37 94 NIV Bilevel 85 01/27/21 00:00 95 NIV Bilevel 70 01/27/21 00:00 53 17 169/103 96 NIV Bilevel 100.00 01/26/21 23:46 87 22 156/87 98 NIV Bilevel 100.00 01/26/21 23:00 56 19 180/97 93 NIV Bilevel 100.00 01/26/21 22:33 56 18 96 55.00 01/26/21 22:00 51 19 178/100 97 NIV Bilevel 100.00 01/26/21 21:00 58 16 172/90 94 NIV Bilevel 100.00 01/26/21 20:11 35.2 01/26/21 20:00 95 NIV Bilevel 70 01/26/21 20:00 58 17 163/89 95 NIV Bilevel 100.00 01/26/21 19:00 50 01/26/21 19:00 43 17 169/101 96 NIV Bilevel 100.00 01/26/21 18:53 46 18 95 60.00 01/26/21 18:00 87 29 156/87 98 NIV Bilevel 100.00 01/26/21 17:00 64 17 163/99 98 NIV Bilevel 100.00 01/26/21 16:15 95 NIV Bilevel 70 01/26/21 16:08 35.0 01/26/21 16:00 93 19 149/105 99 NIV Bilevel 100.00 01/26/21 15:43 60 20 94 70.00 01/26/21 15:00 57 22 175/104 98 NIV Bilevel 100.00 01/26/21 14:00 50 27 164/99 91 NIV Bilevel 100.00 01/26/21 13:00 49 27 159/89 97 NIV Bilevel 100.00 01/26/21 13:00 45 01/26/21 12:00 54 20 159/88 97 NIV Bilevel 100.00 01/26/21 12:00 94 NIV Bilevel 85 01/26/21 11:29 35.3 01/26/21 11:23 86 24 96 80.00 01/26/21 11:00 47 26 159/86 96 NIV Bilevel 100.00 01/26/21 10:00 50 18 160/94 95 NIV Bilevel 100.00 01/26/21 09:00 52 23 171/102 94 NIV Bilevel 100.00 01/26/21 08:43 44 162/92 I & O 01/27/21 07:00 Intake Total 1120 ml Output Total 2750 ml Balance -1630 ml Height & Weight Height: '" Weight: lbs. oz. kg; 51.77 BMI Method: General Appearance: WD/WN, Anxious, Chronically ill, Mild Distress HEENT: PERRL/EOMI, Normal ENT Inspection, Pharynx Normal, Moist Mucous Membranes Neck: Full Range of Motion, Normal Inspection, Non Tender Respiratory: No Accessory Muscle Use, No Respiratory Distress, Decreased Breath Sounds Cardiovascular: Regular Rate, Rhythm Capillary Refill: Less Than 3 Seconds Peripheral Pulses: 1+ Dorsalis Pedis (R), 1+ Left Dors-Pedis (L) Gastrointestinal: normal bowel sounds, non tender, soft Extremity: Normal Capillary Refill, Normal Inspection, Normal Range of Motion, Non Tender, No Calf Tenderness, No Pedal Edema Neurologic/Psychiatric: Alert, Oriented x3 Skin: Normal Color, Warm/Dry Lymphatic: No Adenopathy Results Lab Laboratory Tests 01/26/21 05:14 01/27/21 04:55 Assessment/Plan Assessment/Plan See free text. Critical Care: Critically Ill Patient LOUIS SCHWARTZ MD Jan 27, 2021 08:44
[2021-01-27] MEDS: SENNOSIDES 8.6 MG (SENOKOT) TAB PO SCH (08:47)
[2021-01-27] MEDS: polyethylene glycoL POWDER 17 GM (MIRALAX) PACK PO SCH (08:47)
[2021-01-27] MEDS: PANTOPRAZOLE 40 MG (PROTONIX) VIAL IV SCH (08:47)
[2021-01-27] MEDS: cefTRIAXone 1,000 MG in WATER (STERILE) FOR INJECTION 10 ML IV SCH (11:23)
[2021-01-27] MEDS ORDERED: ACETAMINOPHEN 325 MG TABLET ONE (14:12)
[2021-01-27 22:12] VITALS: BP 112/85
[2021-01-28] MEDS: RT-ALBUTEROL HFA 8.5 GM INHALER IH SCH ×6 (02:23→22:03)
[2021-01-28 04:10] LABS: BASOPHILS % (AUTO) 0 % (0-10); EOSINOPHILS % (AUTO) 0 % (0-10); HEMATOCRIT 44 % (35-52); HEMOGLOBIN 13.6 g/dL (11.5-16.0); LYMPHOCYTES # (AUTO) 1.4 10^3/uL (1.0-4.0); LYMPHOCYTES % (AUTO) 20 % (12-44); MEAN CORPUSCULAR HEMOGLOBIN 27 pg (25-34); MEAN CORPUSCULAR HGB CONC 31 g/dL (32-36); MEAN CORPUSCULAR VOLUME 88 fL (80-99); MEAN PLATELET VOLUME 10.1 fL (9.0-12.2); MONOCYTES # (AUTO) 0.4 10^3/uL (0.0-1.0); MONOCYTES % (AUTO) 6 % (0-12); NEUTROPHILS # (AUTO) 5.2 10^3/uL (1.8-7.8); NEUTROPHILS % (AUTO) 72 % (42-75); PLATELET COUNT 341 10^3/uL (130-400); WHITE BLOOD COUNT 7.2 10^3/uL (4.3-11.0)
[2021-01-28 04:35] LABS: ALBUMIN 2.9 GM/DL (3.2-4.5); BILIRUBIN,TOTAL 0.4 MG/DL (0.1-1.0); CALCIUM 9.6 MG/DL (8.5-10.1); CREATININE SERUM 0.94 MG/DL (0.60-1.30); MAGNESIUM 3.4 MG/DL (1.6-2.4); PHOSPHORUS 4.5 MG/DL (2.3-4.7); POTASSIUM 4.2 MMOL/L (3.6-5.0); TOTAL PROTEIN 6.6 GM/DL (6.4-8.2)
[2021-01-28] MEDS: inSUlin ASPART (NovoLOG) 1 UNIT/0.01 ML (CHARGE PER UNIT) SC SCH ×4 (05:23→21:18)
[2021-01-28] MEDS: dexAMETHasone 6 MG TAB (DECADRON) PO SCH (05:48)
[2021-01-28] MEDS: ENOXAPARIN 60 MG/0.6 ML (LOVENOX) SYR SC SCH ×2 (05:48→17:48)
[2021-01-28 08:55] VITALS: BP 127/71
[2021-01-28] MEDS: PANTOPRAZOLE 40 MG (PROTONIX) VIAL IV SCH (09:20)
[2021-01-28] MEDS: cefTRIAXone 1,000 MG in WATER (STERILE) FOR INJECTION 10 ML IV SCH (09:20)
[2021-01-28] MEDS: polyethylene glycoL POWDER 17 GM (MIRALAX) PACK PO SCH (09:20)
[2021-01-28] MEDS: SENNOSIDES 8.6 MG (SENOKOT) TAB PO SCH (09:21)
--- NOTE | 2021-01-28 09:43 | Tele-ICU Progress Note ---
Subjective Date Seen by a Provider: Jan 28, 2021 Time Seen by a Provider: 09:43 Sepsis Event Evaluation Height, Weight, BMI Height: '" Weight: lbs. oz. kg; 51.77 BMI Method: Exam Exam Patient acknowledged, consented, and participated in this virtual visit which was conducted using real time audio/video Vital Signs Date Time Temp Pulse Resp B/P (MAP) Pulse Ox O2 Delivery O2 Flow Rate FiO2 01/28/21 08:55 35.5 69 86 90 01/28/21 08:00 86 12 127/71 88 Vapotherm 30.00 50.00 01/28/21 07:51 35.5 01/28/21 07:50 Vapotherm 30.00 50.00 01/28/21 07:00 81 17 125/83 91 Vapotherm 40.00 100.00 01/28/21 06:50 81 15 89 Vapotherm 40.00 100.00 01/28/21 06:46 82 01/28/21 06:34 90 Vapotherm 40.00 100 01/28/21 06:34 86 Vapotherm 30.00 90 01/28/21 06:00 71 24 137/87 93 Vapotherm 30.00 90.00 01/28/21 05:53 Vapotherm 30.00 90.00 01/28/21 05:00 74 22 130/79 91 Vapotherm 40.00 100.00 01/28/21 04:04 Vapotherm 40.00 100.00 01/28/21 04:00 75 15 134/75 83 Vapotherm 30.00 80.00 01/28/21 03:50 93 Vapotherm 30.00 80 01/28/21 03:50 36.5 Vapotherm 30.00 80.00 01/28/21 03:00 60 20 122/74 90 Vapotherm 30.00 80.00 01/28/21 02:24 90 Vapotherm 30.00 60 01/28/21 02:00 58 21 129/78 86 Vapotherm 30.00 80.00 01/28/21 01:30 Vapotherm 30.00 80.00 01/28/21 01:00 63 01/28/21 01:00 63 20 119/68 98 Vapotherm 40.00 100.00 01/28/21 00:17 Vapotherm 40.00 100.00 01/28/21 00:09 36.8 NIV Bilevel 45.00 01/28/21 00:00 93 NIV Bilevel 45 01/28/21 00:00 60 20 118/72 92 NIV Bilevel 45.00 01/27/21 23:00 80 13 129/72 94 NIV Bilevel 45.00 01/27/21 22:12 67 16 95 45.00 01/27/21 22:00 74 16 112/85 92 NIV Bilevel 45.00 01/27/21 21:15 NIV Bilevel 45.00 01/27/21 21:10 NIV Bilevel 55.00 01/27/21 21:00 79 12 135/73 97 Vapotherm 30.00 80.00 01/27/21 20:55 Vapotherm 30.00 80.00 01/27/21 20:00 71 11 137/75 97 Vapotherm 30.00 100.00 01/27/21 19:35 93 Vapotherm 30.00 100 01/27/21 19:34 35.7 82 18 125/85 86 Vapotherm 30.00 100.00 01/27/21 19:00 82 01/27/21 18:53 Vapotherm 30.00 60.00 01/27/21 18:49 88 Vapotherm 40.00 60 01/27/21 18:00 74 20 149/70 93 Vapotherm 30.00 50.00 01/27/21 17:39 92 Vapotherm 30.00 50.00 01/27/21 17:00 71 24 112/88 92 Vapotherm 40.00 50.00 01/27/21 16:12 9 Vapotherm 40.00 50 01/27/21 16:00 84 23 122/69 92 Vapotherm 40.00 50.00 01/27/21 15:42 91 Vapotherm 40.00 50 01/27/21 15:00 63 26 123/89 92 Vapotherm 40.00 50.00 01/27/21 14:30 92 Vapotherm 40.00 50.00 01/27/21 14:00 75 28 119/90 91 Vapotherm 40.00 60.00 01/27/21 13:00 76 21 147/80 93 Vapotherm 40.00 60.00 01/27/21 12:53 71 01/27/21 12:00 62 13 144/85 96 Vapotherm 40.00 60.00 01/27/21 11:35 92 Vapotherm 40.00 60 01/27/21 11:33 Vapotherm 40.00 60.00 01/27/21 11:01 96 Vapotherm 40.00 80 01/27/21 11:01 Vapotherm 40.00 80.00 01/27/21 11:00 68 15 152/85 97 Vapotherm 40.00 100.00 01/27/21 10:00 58 22 129/77 92 NIV Bilevel 100.00 01/27/21 10:00 94 Vapotherm 40.00 100.00 I & O 01/28/21 07:00 Intake Total 2025 ml Output Total 1900 ml Balance 125 ml Height & Weight Height: '" Weight: lbs. oz. kg; 51.77 BMI Method: General Appearance: No Apparent Distress, WD/WN, Anxious, Chronically ill, Obese HEENT: PERRL/EOMI, Normal ENT Inspection, Pharynx Normal, Moist Mucous Membranes Neck: Full Range of Motion, Normal Inspection, Non Tender Respiratory: Lungs Clear, Normal Breath Sounds, Decreased Breath Sounds Cardiovascular: Regular Rate, Rhythm Capillary Refill: Less Than 3 Seconds Peripheral Pulses: 1+ Dorsalis Pedis (R), 1+ Left Dors-Pedis (L) Gastrointestinal: normal bowel sounds, non tender, soft Extremity: Normal Capillary Refill, Normal Inspection, Normal Range of Motion, Non Tender, No Calf Tenderness, No Pedal Edema Neurologic/Psychiatric: Alert, Oriented x3 Skin: Normal Color, Warm/Dry Lymphatic: No Adenopathy Results Lab Laboratory Tests 01/27/21 04:55 01/28/21 03:45 Assessment/Plan Assessment/Plan (Tele-ICU Physician , Progress Note ) Available chart/ vitals / labs / Images reviewed Video assessment done using teleICU camera, rest of exam as per RN Discussed with RN , EXAM PER RN Events overnight : Afebrile I/O = even Drips: Pressors: , hemodynamically stable Consultants: Hospital course: 01/23- COVID PNA< maxed on Vapotherm 40L 100% , no PE on CT 01/25 - desats on 100% 540 L vapotherm -> BIPAP (18/02 rr 28 tv600 V 17L - vapotherm 30L 50% A/P AHRF / ARDS due to severe COVID19 ( CT chest 01/23 - no PE - Vapotherm - vapotherm 30L 50% improved , Bipap to cont at night - does not tolerate weel -prone position if able - conservative fluid strategy (aim for even or negative fluid balance [id number]-19 PNA ( Not vaccinated , Dx 01/16/2021 ) Actemra - 01/24 -Steroids IV - started 01/24 -Hypercoagulable state , DDIMER 1. 44 on 01/23 -> lovenox 60 q 12 ( CT chest 01/23 - no PE Monitor for superimposed bact PNA -PCT 01/25 o.5 -> starting cefepime 01/25 Hyperglycemia - nwe Dx of DM with HbA1c =11 on 01/25 - ISS , as per PCP close f/up on steroids morbid obesity of BMI of 52 transaminitis likely due to COVID-19. Lines : periph (Central Line Necessity Reviewed) Gayle: + OG: Nutrition: PO Analgesia: Anxiety/ delirium VTE Prophylaxis: lovenox 60 q 12 Stress Ulcer Propylaxis: ppi Glycemic Control: Plans in collaboration with bedside consultants and IM MDs. Discussed with RN to reach out if any questions or concerns A total of 34 minutes of critical care time was devoted to this patient today, required to treat and/or prevent further deterioration of critical care condition ( as above) . STEPHY BUORNE MD Jan 28, 2021 09:43
--- NOTE | 2021-01-28 11:35 | Pulmonary Progress Note ---
TOD MICHAEL MED STUDENT 01/28/21 1135: Subjective Date Seen by a Provider: Jan 28, 2021 Time Seen by a Provider: 07:45 Subjective/Events-last exam This is "Willis" a 50 yo female on day 6 of her hospital stay with the chief complaint of COVID-19 and hypoxia. Pt stated that she is feeling much better today and showing improvements. She had difficulty sleeping last night and stated that she refused medication to help sleep. She is continuing to experience hip pain which is chronic. She is eating and drinking well but states that her appetite isn't like it used to be yet. Pts O2 saturation was at 93% on 25 L of 40% vapotherm. Review of Systems General: Appetite Sepsis Event Evaluation Height, Weight, BMI Height: '" Weight: lbs. oz. kg; 51.77 BMI Method: Focused Exam Time of Focused Exam: 07:45 Respiratory: Chest Non Tender, No Accessory Muscle Use, Crackles (worse in lower lung alejo bilaterally) Cardiovascular: Regular Rate, Rhythm, No Edema, No Gallop, No Murmur, Normal Peripheral Pulses Skin: normal color, warm/dry Exam Exam Patient acknowledged, consented, and participated in this virtual visit which was conducted using real time audio/video Vital Signs Date Time Temp Pulse Resp B/P (MAP) Pulse Ox O2 Delivery O2 Flow Rate FiO2 01/28/21 11:12 Vapotherm 25.00 40.00 01/28/21 11:00 71 22 128/65 93 Vapotherm 30.00 75.00 01/28/21 10:34 94 30.00 60 01/28/21 10:33 97 Vapotherm 30.00 75 01/28/21 10:00 78 14 165/94 92 Vapotherm 30.00 75.00 01/28/21 09:30 88 Vapotherm 30.00 75.00 01/28/21 09:00 68 22 139/82 88 Vapotherm 30.00 50.00 01/28/21 09:00 88 Vapotherm 30.00 75 01/28/21 08:55 35.5 69 86 90 01/28/21 08:00 86 12 127/71 88 Vapotherm 30.00 50.00 01/28/21 07:51 35.5 01/28/21 07:50 Vapotherm 30.00 50.00 01/28/21 07:00 81 17 125/83 91 Vapotherm 40.00 100.00 01/28/21 06:50 81 15 89 Vapotherm 40.00 100.00 01/28/21 06:46 82 01/28/21 06:34 90 Vapotherm 40.00 100 01/28/21 06:34 86 Vapotherm 30.00 90 01/28/21 06:00 71 24 137/87 93 Vapotherm 30.00 90.00 01/28/21 05:53 Vapotherm 30.00 90.00 01/28/21 05:00 74 22 130/79 91 Vapotherm 40.00 100.00 01/28/21 04:04 Vapotherm 40.00 100.00 01/28/21 04:00 75 15 134/75 83 Vapotherm 30.00 80.00 01/28/21 03:50 93 Vapotherm 30.00 80 01/28/21 03:50 36.5 Vapotherm 30.00 80.00 01/28/21 03:00 60 20 122/74 90 Vapotherm 30.00 80.00 01/28/21 02:24 90 Vapotherm 30.00 60 01/28/21 02:00 58 21 129/78 86 Vapotherm 30.00 80.00 01/28/21 01:30 Vapotherm 30.00 80.00 01/28/21 01:00 63 01/28/21 01:00 63 20 119/68 98 Vapotherm 40.00 100.00 01/28/21 00:17 Vapotherm 40.00 100.00 01/28/21 00:09 36.8 NIV Bilevel 45.00 01/28/21 00:00 93 NIV Bilevel 45 01/28/21 00:00 60 20 118/72 92 NIV Bilevel 45.00 01/27/21 23:00 80 13 129/72 94 NIV Bilevel 45.00 01/27/21 22:12 67 16 95 45.00 01/27/21 22:00 74 16 112/85 92 NIV Bilevel 45.00 01/27/21 21:15 NIV Bilevel 45.00 01/27/21 21:10 NIV Bilevel 55.00 01/27/21 21:00 79 12 135/73 97 Vapotherm 30.00 80.00 01/27/21 20:55 Vapotherm 30.00 80.00 01/27/21 20:00 71 11 137/75 97 Vapotherm 30.00 100.00 01/27/21 19:35 93 Vapotherm 30.00 100 01/27/21 19:34 35.7 82 18 125/85 86 Vapotherm 30.00 100.00 01/27/21 19:00 82 01/27/21 18:53 Vapotherm 30.00 60.00 01/27/21 18:49 88 Vapotherm 40.00 60 01/27/21 18:00 74 20 149/70 93 Vapotherm 30.00 50.00 01/27/21 17:39 92 Vapotherm 30.00 50.00 01/27/21 17:00 71 24 112/88 92 Vapotherm 40.00 50.00 01/27/21 16:12 9 Vapotherm 40.00 50 01/27/21 16:00 84 23 122/69 92 Vapotherm 40.00 50.00 01/27/21 15:42 91 Vapotherm 40.00 50 01/27/21 15:00 63 26 123/89 92 Vapotherm 40.00 50.00 01/27/21 14:30 92 Vapotherm 40.00 50.00 01/27/21 14:00 75 28 119/90 91 Vapotherm 40.00 60.00 01/27/21 13:00 76 21 147/80 93 Vapotherm 40.00 60.00 01/27/21 12:53 71 01/27/21 12:00 62 13 144/85 96 Vapotherm 40.00 60.00 01/27/21 11:35 92 Vapotherm 40.00 60 01/27/21 11:33 Vapotherm 40.00 60.00 I & O 01/28/21 07:00 Intake Total 2025 ml Output Total 1900 ml Balance 125 ml Height & Weight Height: '" Weight: lbs. oz. kg; 51.77 BMI Method: General Appearance: No Apparent Distress, WD/WN, Anxious, Chronically ill, Obese HEENT: PERRL/EOMI, Normal ENT Inspection, Pharynx Normal, Moist Mucous Membranes Neck: Full Range of Motion, Normal Inspection, Non Tender Respiratory: Lungs Clear, Normal Breath Sounds, Decreased Breath Sounds Cardiovascular: Regular Rate, Rhythm, No Edema, No Gallop, No Murmur, Normal Peripheral Pulses Capillary Refill: Less Than 3 Seconds Peripheral Pulses: 1+ Dorsalis Pedis (R), 1+ Left Dors-Pedis (L) Gastrointestinal: normal bowel sounds, non tender, soft Extremity: Normal Capillary Refill, Normal Inspection, Normal Range of Motion, Non Tender, No Calf Tenderness, No Pedal Edema Neurologic/Psychiatric: Alert, Oriented x3, Normal Mood/Affect Skin: Normal Color, Warm/Dry Results Lab Laboratory Tests 01/27/21 04:55 01/28/21 03:45 Assessment/Plan Assessment/Plan Covid-19 pneumonia continue antibiotics and steroids acute hypoxic respiratory failure obesity BMI of 53 continue supplemental O2 vapotherm high risk of intubation continue supportive care hyperglycemia glucose of 167 on 01/28 continue insulin possible transfer to step down DVT/ PE prophylaxis lovenox elevated liver enzymes AST of 41 on 01/28 STEPHY BOURNE MD 01/31/21 1426: Supervisory-Addendum Brief Verification & Attestation Participated in pt care: history, MDM, physical Personally performed: history, MDM, supervision of care Care discussed with: Medical Student Procedures: n/a A medical student performed and documented this service. I reviewed information documented by the medical student . Medical student performed patients physical exam . Medical decision making was done during tele-rounds with this medical student and a bedside RN . Please see my notes for details /clarification of assessment and plans TOD MICHAEL MED STUDENT Jan 28, 2021 11:35 STEPHY BOURNE MD Jan 31, 2021 14:26
--- NOTE | 2021-01-28 17:10 | Progress Note ---
Subjective Subjective/Events-last exam Sitting up this AM eating breakfast. States that she is feeling better this AM. Tolerating PO diet. Review of Systems General: Malaise Pulmonary: Dyspnea, Cough Cardiovascular: No: Chest Pain, Palpitations Gastrointestinal: No: Nausea, Vomiting, Abdominal Pain, Diarrhea, Constipation Neurological: Weakness, Incoordination Focused Exam Time of Focused Exam: 07:45 Objective Exam Last Set of Vital Signs Vital Signs Date Time Temp Pulse Resp B/P (MAP) Pulse Ox O2 Delivery O2 Flow Rate FiO2 01/28/21 15:26 88 Vapotherm 25.00 65 01/28/21 15:00 87 28 126/83 01/28/21 08:55 35.5 Capillary Refill : Less Than 3 Seconds I&O Intake and Output 01/28/21 00:00 Intake Total 2270 ml Output Total 2475 ml Balance -205 ml Intake Oral 2270 ml Output Urine Total 2475 ml # Bowel Movements 1 General: Alert, Oriented X3, Cooperative, Mild Distress (with minimal activity) Lungs: Clear to Auscultation, Normal Air Movement Heart: Regular Rate, No Murmurs Abdomen: Normal Bowel Sounds, Soft, No Tenderness, No Masses Extremities: No Edema, No Tenderness/Swelling Neuro: Normal Speech, Sensation Intact, Cranial Nerves 3-12 NL Results/Procedures Lab Laboratory Tests 01/27/21 21:01: Glucometer 237H 01/28/21 03:45: White Blood Count 7.2, Red Blood Count 5.02, Hemoglobin 13.6, Hematocrit 44, Mean Corpuscular Volume 88, Mean Corpuscular Hemoglobin 27, Mean Corpuscular Hemoglobin Concent 31L, Red Cell Distribution Width 13.9, Platelet Count 341, Mean Platelet Volume 10.1, Immature Granulocyte % (Auto) 2, Neutrophils (%) (Auto) 72, Lymphocytes (%) (Auto) 20, Monocytes (%) (Auto) 6, Eosinophils (%) (Auto) 0, Basophils (%) (Auto) 0, Neutrophils # (Auto) 5.2, Lymphocytes # (Auto) 1.4, Monocytes # (Auto) 0.4, Eosinophils # (Auto) 0.0, Basophils # (Auto) 0.0, Immature Granulocyte # (Auto) 0.1, Sodium Level 136, Potassium Level 4.2, Chloride Level 99, Carbon Dioxide Level 22, Anion Gap 15H, Blood Urea Nitrogen 40H, Creatinine 0.94, Estimat Glomerular Filtration Rate 63, BUN/Creatinine Ratio 43, Glucose Level 167H, Calcium Level 9.6, Corrected Calcium 10.5H, Phosphorus Level 4.5, Magnesium Level 3.4H, Total Bilirubin 0.4, Aspartate Amino Transf (AST/SGOT) 41H, Alanine Aminotransferase (ALT/SGPT) 30, Alkaline Phosphatase 64, Total Protein 6.6, Albumin 2.9L 01/28/21 10:42: Glucometer 377H Microbiology 01/23/21 Blood Culture - Final, Complete No growth Assessment/Plan Assessment/Plan (1) Acute and chronic respiratory failure with hypoxia Status: Acute Assessment & Plan: 01/28: Will continue to titrate vapotherm as tolerated, MAT protocol, S/p Actrema, high dose steroids, Tele ICU helping with ICU management, appreciate recommendations, Encourage IS and proning (2) Pneumonia due to COVID-19 virus Status: Acute (3) Hypercoagulable state associated with COVID-19 Status: Acute Assessment & Plan: - Lovenox (4) Uncontrolled diabetes mellitus Status: Chronic Assessment & Plan: 01/28: A1c 10.9, Started BID Levemir in addition to SSI Qualifiers: Qualified Codes: E11.65 - Type 2 diabetes mellitus with hyperglycemia (5) BMI 50.0-59.9, adult Status: Chronic COLT MILLER MD Jan 28, 2021 17:10
[2021-01-29] MEDS: RT-ALBUTEROL HFA 8.5 GM INHALER IH SCH ×6 (02:12→21:55)
[2021-01-29] MEDS: dexAMETHasone 6 MG TAB (DECADRON) PO SCH (05:48)
[2021-01-29] MEDS: ENOXAPARIN 60 MG/0.6 ML (LOVENOX) SYR SC SCH ×2 (05:48→17:33)
[2021-01-29] MEDS: inSUlin ASPART (NovoLOG) 1 UNIT/0.01 ML (CHARGE PER UNIT) SC SCH ×5 (06:00→22:24)
[2021-01-29 06:13] LABS: BASOPHILS % (AUTO) 0 % (0-10); EOSINOPHILS # (AUTO) 0.1 10^3/uL (0.0-0.3); EOSINOPHILS % (AUTO) 1 % (0-10); HEMATOCRIT 45 % (35-52); LYMPHOCYTES # (AUTO) 1.6 10^3/uL (1.0-4.0); LYMPHOCYTES % (AUTO) 20 % (12-44); MEAN CORPUSCULAR HEMOGLOBIN 27 pg (25-34); MEAN CORPUSCULAR HGB CONC 31 g/dL (32-36); MEAN CORPUSCULAR VOLUME 87 fL (80-99); MEAN PLATELET VOLUME 9.7 fL (9.0-12.2); MONOCYTES # (AUTO) 0.5 10^3/uL (0.0-1.0); MONOCYTES % (AUTO) 5 % (0-12); NEUTROPHILS % (AUTO) 72 % (42-75); PLATELET COUNT 360 10^3/uL (130-400); WHITE BLOOD COUNT 8.3 10^3/uL (4.3-11.0)
[2021-01-29 06:41] LABS: ALBUMIN 3.2 GM/DL (3.2-4.5); BILIRUBIN,TOTAL 0.4 MG/DL (0.1-1.0); CALCIUM 9.4 MG/DL (8.5-10.1); CREATININE SERUM 1.04 MG/DL (0.60-1.30); MAGNESIUM 1.9 MG/DL (1.6-2.4); PHOSPHORUS 3.8 MG/DL (2.3-4.7); POTASSIUM 4.1 MMOL/L (3.6-5.0)
[2021-01-29] MEDS: cefTRIAXone 1,000 MG in WATER (STERILE) FOR INJECTION 10 ML IV SCH ×2 (08:56→11:18)
[2021-01-29] MEDS: PANTOPRAZOLE 40 MG (PROTONIX) VIAL IV SCH (08:57)
[2021-01-29] MEDS: SENNOSIDES 8.6 MG (SENOKOT) TAB PO SCH (09:38)
[2021-01-29] MEDS: polyethylene glycoL POWDER 17 GM (MIRALAX) PACK PO SCH (09:38)
--- NOTE | 2021-01-29 10:45 | Tele-ICU Progress Note ---
Subjective Date Seen by a Provider: Jan 29, 2021 Time Seen by a Provider: 10:45 Sepsis Event Evaluation Height, Weight, BMI Height: '" Weight: lbs. oz. kg; 51.77 BMI Method: Focused Exam Time of Focused Exam: 07:45 Exam Exam Patient acknowledged, consented, and participated in this virtual visit which was conducted using real time audio/video Vital Signs Date Time Temp Pulse Resp B/P (MAP) Pulse Ox O2 Delivery O2 Flow Rate FiO2 01/29/21 10:20 91 Vapotherm 20.00 50 01/29/21 10:00 81 31 141/83 92 Vapotherm 20.00 50.00 01/29/21 09:00 87 23 133/89 89 Vapotherm 20.00 50.00 01/29/21 08:00 35.6 01/29/21 08:00 94 Vapotherm 20.00 50 01/29/21 08:00 96 36 152/84 Vapotherm 20.00 50.00 01/29/21 07:15 92 Vapotherm 20.00 50 01/29/21 07:00 72 22 145/81 91 Vapotherm 20.00 50.00 01/29/21 06:47 73 01/29/21 06:00 74 18 131/76 89 Vapotherm 20.00 50.00 01/29/21 05:00 64 25 128/75 92 Vapotherm 20.00 50.00 01/29/21 04:42 Vapotherm 20.00 50.00 01/29/21 04:40 36.3 75 18 132/78 96 Vapotherm 25.00 60.00 01/29/21 03:30 94 Vapotherm 25.00 60 01/29/21 03:00 75 24 129/77 92 Vapotherm 25.00 60.00 01/29/21 02:12 96 Vapotherm 25.00 60 01/29/21 02:00 76 23 147/84 95 Vapotherm 25.00 60.00 01/29/21 01:00 64 20 133/77 96 Vapotherm 25.00 60.00 01/29/21 01:00 64 01/29/21 00:00 64 23 124/71 91 Vapotherm 25.00 60.00 01/28/21 23:35 93 Vapotherm 25.00 60 01/28/21 23:35 36.0 Vapotherm 25.00 60.00 01/28/21 23:00 78 25 139/71 95 Vapotherm 25.00 60.00 01/28/21 22:03 93 Vapotherm 25.00 60 01/28/21 22:00 67 25 152/82 92 Vapotherm 25.00 60.00 01/28/21 21:30 Vapotherm 25.00 60.00 01/28/21 21:19 76 21 168/89 96 Vapotherm 25.00 70.00 01/28/21 20:00 70 19 127/90 91 Vapotherm 25.00 70.00 01/28/21 19:35 93 Vapotherm 25.00 70 01/28/21 19:30 35.9 78 22 129/77 Vapotherm 25.00 70.00 01/28/21 19:18 83 01/28/21 19:00 Vapotherm 25.00 55.00 01/28/21 18:45 90 Vapotherm 25.00 65 01/28/21 18:00 92 17 148/94 89 Vapotherm 25.00 55.00 01/28/21 17:05 Vapotherm 25.00 55.00 01/28/21 17:00 77 17 133/80 91 Vapotherm 25.00 65.00 01/28/21 16:00 87 32 139/99 94 Vapotherm 25.00 65.00 01/28/21 15:26 88 Vapotherm 25.00 65 01/28/21 15:00 87 28 126/83 89 Vapotherm 25.00 65.00 01/28/21 14:44 91 Vapotherm 25.00 65 01/28/21 14:30 92 Vapotherm 25.00 65.00 01/28/21 14:00 84 19 141/94 91 Vapotherm 25.00 75.00 01/28/21 13:37 Vapotherm 25.00 75.00 01/28/21 13:00 82 14 187/110 86 Vapotherm 25.00 55.00 01/28/21 12:28 85 01/28/21 12:00 76 12 136/72 91 Vapotherm 25.00 55.00 01/28/21 12:00 88 Vapotherm 25.00 50 01/28/21 11:45 94 Vapotherm 25.00 55.00 01/28/21 11:12 Vapotherm 25.00 40.00 01/28/21 11:00 71 22 128/65 93 Vapotherm 30.00 75.00 I & O 01/29/21 07:00 Intake Total 1550 ml Output Total 1790 ml Balance -240 ml Height & Weight Height: '" Weight: lbs. oz. kg; 51.77 BMI Method: General Appearance: No Apparent Distress, WD/WN, Anxious, Chronically ill, Obese HEENT: PERRL/EOMI, Normal ENT Inspection, Pharynx Normal, Moist Mucous Membranes Neck: Full Range of Motion, Normal Inspection, Non Tender Respiratory: Lungs Clear, Normal Breath Sounds, Decreased Breath Sounds Cardiovascular: Regular Rate, Rhythm, No Edema, No Gallop, No Murmur, Normal Peripheral Pulses Capillary Refill: Less Than 3 Seconds Peripheral Pulses: 1+ Dorsalis Pedis (R), 1+ Left Dors-Pedis (L) Gastrointestinal: normal bowel sounds, non tender, soft Extremity: Normal Capillary Refill, Normal Inspection, Normal Range of Motion, Non Tender, No Calf Tenderness, No Pedal Edema Neurologic/Psychiatric: Alert, Oriented x3, Normal Mood/Affect Skin: Normal Color, Warm/Dry Results Lab Laboratory Tests 01/28/21 03:45 01/29/21 05:48 Assessment/Plan Assessment/Plan (Tele-ICU Physician , Progress Note ) Available chart/ vitals / labs / Images reviewed Video assessment done using teleICU camera, rest of exam as per RN Discussed with RN , EXAM PER RN Events overnight : Afebrile I/O = even Drips: Pressors: , hemodynamically stable Consultants: Hospital course: 01/23- COVID PNA< maxed on Vapotherm 40L 100% , no PE on CT 01/25 - desats on 100% 540 L vapotherm -> BIPAP (18/02 rr 28 tv600 V 17L - vapotherm 30L 50% 01/29- VT 20L 50 % A/P AHRF / ARDS due to severe COVID19 ( CT chest 01/23 - no PE - Vapotherm - vapotherm 30L 50% improved , Bipap to cont at night - does not tolerate well -prone position if able - conservative fluid strategy (aim for even or negative fluid balance [id number] PNA ( Not vaccinated , Dx 01/16/2021 ) Actemra - 01/24 -Steroids IV - started 01/24 -Hypercoagulable state , DDIMER 1. 44 on 01/23 -> lovenox 60 q 12 ( CT chest 01/23 - no PE Monitor for superimposed bact PNA -PCT 01/25 0.5 -> starting cefepime 01/25 Hyperglycemia - new Dx of DM with HbA1c =11 on 01/25 - ISS , as per PCP close f/up on steroids morbid obesity of BMI of 52 transaminitis likely due to COVID-19. Lines : periph (Central Line Necessity Reviewed) Gayle: + OG: Nutrition: PO Analgesia: Anxiety/ delirium VTE Prophylaxis: lovenox 60 q 12 Stress Ulcer Propylaxis: ppi Glycemic Control: Plans in collaboration with bedside consultants and IM MDs. Discussed with RN to reach out if any questions or concerns A total of 25 minutes of critical care time was devoted to this patient today, required to treat and/or prevent further deterioration of critical care condition ( as above) . STEPHY BOURNE MD Jan 29, 2021 10:45
--- NOTE | 2021-01-29 12:16 | Progress Note ---
Subjective Subjective/Events-last exam Patient feeling better this AM. She is sitting up in her chair eating breakfast. Denies any acute concerns this AM. Tolerating PO diet. Doing better with transfers Review of Systems Pulmonary: Dyspnea Cardiovascular: No: Chest Pain, Palpitations Gastrointestinal: No: Nausea, Vomiting, Abdominal Pain Neurological: Weakness, Incoordination Focused Exam Time of Focused Exam: 07:45 Objective Exam Last Set of Vital Signs Vital Signs Date Time Temp Pulse Resp B/P (MAP) Pulse Ox O2 Delivery O2 Flow Rate FiO2 01/29/21 10:20 91 Vapotherm 20.00 50 01/29/21 10:00 81 31 141/83 01/29/21 08:00 35.6 Capillary Refill : Less Than 3 Seconds I&O Intake and Output 01/29/21 00:00 Intake Total 1525 ml Output Total 1735 ml Balance -210 ml Intake Oral 1525 ml Output Urine Total 1735 ml General: Alert, Oriented X3, Cooperative, Mild Distress (with activity: Improving) Lungs: Clear to Auscultation, Normal Air Movement Heart: Regular Rate, No Murmurs Abdomen: Normal Bowel Sounds, Soft, No Tenderness, No Masses Extremities: Other (trace swelling present bilaterally) Neuro: Normal Speech, Sensation Intact Psych/Mental Status: Mood NL Results/Procedures Lab Laboratory Tests 01/28/21 17:43: Glucometer 297H 01/28/21 20:46: Glucometer 304H 01/29/21 05:47: Glucometer 182H 01/29/21 05:48: White Blood Count 8.3, Red Blood Count 5.18H, Hemoglobin 14.0, Hematocrit 45, Mean Corpuscular Volume 87, Mean Corpuscular Hemoglobin 27, Mean Corpuscular Hemoglobin Concent 31L, Red Cell Distribution Width 14.1, Platelet Count 360, Mean Platelet Volume 9.7, Immature Granulocyte % (Auto) 2, Neutrophils (%) (Auto) 72, Lymphocytes (%) (Auto) 20, Monocytes (%) (Auto) 5, Eosinophils (%) (Auto) 1, Basophils (%) (Auto) 0, Neutrophils # (Auto) 6.0, Lymphocytes # (Auto) 1.6, Monocytes # (Auto) 0.5, Eosinophils # (Auto) 0.1, Basophils # (Auto) 0.0, Immature Granulocyte # (Auto) 0.2H, Sodium Level 136, Potassium Level 4.1, Chloride Level 98, Carbon Dioxide Level 25, Anion Gap 13, Blood Urea Nitrogen 33H, Creatinine 1.04, Estimat Glomerular Filtration Rate 56, BUN/Creatinine Ratio 32, Glucose Level 186H, Calcium Level 9.4, Corrected Calcium 10.0, Phosphorus Level 3.8, Magnesium Level 1.9, Total Bilirubin 0.4, Aspartate Amino Transf (AST/SGOT) 31, Alanine Aminotransferase (ALT/SGPT) 35, Alkaline Phosphatase 60, Total Protein 7.0, Albumin 3.2 01/29/21 11:53: Glucometer 411*H Microbiology 01/23/21 Blood Culture - Final, Complete No growth Assessment/Plan Assessment/Plan (1) Acute and chronic respiratory failure with hypoxia Status: Acute Assessment & Plan: 01/28: Will continue to titrate vapotherm as tolerated, MAT protocol, S/p Actrema, high dose steroids, Tele ICU helping with ICU management, appreciate recommendations, Encourage IS and proning 01/29: Continue to titrate oxygen need, PT/OT, patient to transfer to Med/Surg today (2) Pneumonia due to COVID-19 virus Status: Acute (3) Hypercoagulable state associated with COVID-19 Status: Acute Assessment & Plan: - Lovenox (4) Uncontrolled diabetes mellitus Status: Chronic Assessment & Plan: 01/28: A1c 10.9, Started BID Levemir in addition to SSI 01/29: Increased Levemir today 15 units BID with SSI Qualifiers: Qualified Codes: E11.65 - Type 2 diabetes mellitus with hyperglycemia (5) BMI 50.0-59.9, adult Status: Chronic COLT MILLER MD Jan 29, 2021 12:16
--- NOTE | 2021-01-29 14:43 | Pulmonary Progress Note ---
DAVID [place] MED STUDENT 01/29/21 1443: Subjective Date Seen by a Provider: Jan 29, 2021 Time Seen by a Provider: 07:40 Subjective/Events-last exam Renee states she feels improved. Denies fevers/chills overnight. No new pain. On vapotherm 20 LPM + 50% FiO2. Sepsis Event Evaluation Height, Weight, BMI Height: '" Weight: lbs. oz. kg; 51.77 BMI Method: Focused Exam Time of Focused Exam: 07:45 Exam Exam Patient acknowledged, consented, and participated in this virtual visit which was conducted using real time audio/video Vital Signs Date Time Temp Pulse Resp B/P (MAP) Pulse Ox O2 Delivery O2 Flow Rate FiO2 01/29/21 12:00 36.0 01/29/21 12:00 85 14 143/88 89 Vapotherm 20.00 50.00 01/29/21 12:00 94 Vapotherm 20.00 50 01/29/21 10:20 91 Vapotherm 20.00 50 01/29/21 10:00 81 31 141/83 92 Vapotherm 20.00 50.00 01/29/21 09:00 87 23 133/89 89 Vapotherm 20.00 50.00 01/29/21 08:00 35.6 01/29/21 08:00 94 Vapotherm 20.00 50 01/29/21 08:00 96 36 152/84 Vapotherm 20.00 50.00 01/29/21 07:15 92 Vapotherm 20.00 50 01/29/21 07:00 72 22 145/81 91 Vapotherm 20.00 50.00 01/29/21 06:47 73 01/29/21 06:00 74 18 131/76 89 Vapotherm 20.00 50.00 01/29/21 05:00 64 25 128/75 92 Vapotherm 20.00 50.00 01/29/21 04:42 Vapotherm 20.00 50.00 01/29/21 04:40 36.3 75 18 132/78 96 Vapotherm 25.00 60.00 01/29/21 03:30 94 Vapotherm 25.00 60 01/29/21 03:00 75 24 129/77 92 Vapotherm 25.00 60.00 01/29/21 02:12 96 Vapotherm 25.00 60 01/29/21 02:00 76 23 147/84 95 Vapotherm 25.00 60.00 01/29/21 01:00 64 20 133/77 96 Vapotherm 25.00 60.00 01/29/21 01:00 64 01/29/21 00:00 64 23 124/71 91 Vapotherm 25.00 60.00 01/28/21 23:35 93 Vapotherm 25.00 60 01/28/21 23:35 36.0 Vapotherm 25.00 60.00 01/28/21 23:00 78 25 139/71 95 Vapotherm 25.00 60.00 01/28/21 22:03 93 Vapotherm 25.00 60 01/28/21 22:00 67 25 152/82 92 Vapotherm 25.00 60.00 01/28/21 21:30 Vapotherm 25.00 60.00 01/28/21 21:19 76 21 168/89 96 Vapotherm 25.00 70.00 01/28/21 20:00 70 19 127/90 91 Vapotherm 25.00 70.00 01/28/21 19:35 93 Vapotherm 25.00 70 01/28/21 19:30 35.9 78 22 129/77 Vapotherm 25.00 70.00 01/28/21 19:18 83 01/28/21 19:00 Vapotherm 25.00 55.00 01/28/21 18:45 90 Vapotherm 25.00 65 01/28/21 18:00 92 17 148/94 89 Vapotherm 25.00 55.00 01/28/21 17:05 Vapotherm 25.00 55.00 01/28/21 17:00 77 17 133/80 91 Vapotherm 25.00 65.00 01/28/21 16:00 87 32 139/99 94 Vapotherm 25.00 65.00 01/28/21 15:26 88 Vapotherm 25.00 65 01/28/21 15:00 87 28 126/83 89 Vapotherm 25.00 65.00 01/28/21 14:44 91 Vapotherm 25.00 65 I & O 01/29/21 07:00 Intake Total 1550 ml Output Total 1790 ml Balance -240 ml Height & Weight Height: '" Weight: lbs. oz. kg; 51.77 BMI Method: General Appearance: No Apparent Distress, WD/WN, Chronically ill, Obese HEENT: PERRL/EOMI, Normal ENT Inspection, Pharynx Normal, Moist Mucous Membranes Neck: Full Range of Motion, Normal Inspection, Non Tender Respiratory: No Accessory Muscle Use, No Respiratory Distress, Decreased Breath Sounds, Other (on vapotherm 20 + 50. Coarse breath sounds. Lungs sound greatly improved compared to 4 days ago.) Cardiovascular: Regular Rate, Rhythm, No Edema, No Gallop, No Murmur, Normal Peripheral Pulses Capillary Refill: Less Than 3 Seconds Peripheral Pulses: 1+ Dorsalis Pedis (R), 1+ Left Dors-Pedis (L) Gastrointestinal: normal bowel sounds, non tender, soft Extremity: Normal Capillary Refill, Normal Inspection, Normal Range of Motion, Non Tender, No Calf Tenderness, No Pedal Edema, Other (some ecchymoses to anterior shins bilaterally. ) Neurologic/Psychiatric: Alert, Oriented x3, Normal Mood/Affect (very pleasant) Skin: Normal Color, Warm/Dry Results Lab Laboratory Tests 01/28/21 03:45 01/29/21 05:48 Assessment/Plan Assessment/Plan Covid 19 PNA ARDS -on ceftriaxone -Vapotherm at 20 + 50%. -compared to last thursday the patient is moving air much better. -candidate for moving down to the floor morbid obesity DM 2 hyperglycemia -on 15 levemir BID + sliding scale. Gayle catheter in place Elevated BUN DVT/PE prophylaxis -lovenox 60 Q12H STEPHY BOURNE MD 01/31/21 0903: Supervisory-Addendum Brief Verification & Attestation Participated in pt care: history, MDM, physical Personally performed: history, MDM, supervision of care Care discussed with: Medical Student Procedures: n/a MY NOTE IN CHART A medical student performed and documented this service. I reviewed all information documented by the medical student . Medical student performed patients physical exam . Medical decision making was done during tele-rounds with this medical student and a bedside RN . Please see my notes for details /clarification. DAVID [place] MED STUDENT Jan 29, 2021 14:43 STEPHY BOURNE MD Jan 31, 2021 09:03
[2021-01-30] MEDS: RT-ALBUTEROL HFA 8.5 GM INHALER IH SCH ×6 (02:10→22:37)
[2021-01-30] MEDS: ENOXAPARIN 60 MG/0.6 ML (LOVENOX) SYR SC SCH ×2 (04:04→17:05)
[2021-01-30] MEDS: dexAMETHasone 6 MG TAB (DECADRON) PO SCH (06:35)
[2021-01-30] MEDS: inSUlin ASPART (NovoLOG) 1 UNIT/0.01 ML (CHARGE PER UNIT) SC SCH ×4 (06:39→21:47)
[2021-01-30 07:15] LABS: BASOPHILS % (AUTO) 0 % (0-10); EOSINOPHILS # (AUTO) 0.1 10^3/uL (0.0-0.3); EOSINOPHILS % (AUTO) 1 % (0-10); HEMATOCRIT 45 % (35-52); HEMOGLOBIN 14.1 g/dL (11.5-16.0); LYMPHOCYTES # (AUTO) 2.3 10^3/uL (1.0-4.0); LYMPHOCYTES % (AUTO) 23 % (12-44); MEAN CORPUSCULAR HEMOGLOBIN 27 pg (25-34); MEAN CORPUSCULAR HGB CONC 31 g/dL (32-36); MEAN CORPUSCULAR VOLUME 87 fL (80-99); MEAN PLATELET VOLUME 9.5 fL (9.0-12.2); MONOCYTES # (AUTO) 0.5 10^3/uL (0.0-1.0); MONOCYTES % (AUTO) 5 % (0-12); NEUTROPHILS # (AUTO) 6.8 10^3/uL (1.8-7.8); NEUTROPHILS % (AUTO) 67 % (42-75); PLATELET COUNT 373 10^3/uL (130-400); WHITE BLOOD COUNT 10.1 10^3/uL (4.3-11.0)
[2021-01-30 07:28] LABS: ALBUMIN 3.3 GM/DL (3.2-4.5); POTASSIUM 4.1 MMOL/L (3.6-5.0)
[2021-01-30 07:29] LABS: CALCIUM 9.6 MG/DL (8.5-10.1)
[2021-01-30 07:30] LABS: TOTAL PROTEIN 6.9 GM/DL (6.4-8.2)
[2021-01-30 07:32] LABS: BILIRUBIN,TOTAL 0.5 MG/DL (0.1-1.0)
[2021-01-30 07:33] LABS: PHOSPHORUS 3.7 MG/DL (2.3-4.7)
[2021-01-30 07:34] LABS: CREATININE SERUM 0.95 MG/DL (0.60-1.30)
[2021-01-30 07:36] LABS: MAGNESIUM 1.9 MG/DL (1.6-2.4)
[2021-01-30] MEDS: PANTOPRAZOLE 40 MG (PROTONIX) TAB PO SCH (09:20)
[2021-01-30] MEDS: polyethylene glycoL POWDER 17 GM (MIRALAX) PACK PO SCH (09:20)
[2021-01-30] MEDS: SENNOSIDES 8.6 MG (SENOKOT) TAB PO SCH (09:20)
--- NOTE | 2021-01-30 21:38 | Progress Note ---
Subjective Subjective/Events-last exam Patient states that she is feeling much better. Up in chair this AM. Got up to the shower this AM. Review of Systems Pulmonary: Dyspnea, Cough Cardiovascular: No: Chest Pain, Palpitations Gastrointestinal: No: Nausea, Vomiting, Abdominal Pain Neurological: Weakness, Incoordination Focused Exam Time of Focused Exam: 07:45 Objective Exam Last Set of Vital Signs Vital Signs Date Time Temp Pulse Resp B/P (MAP) Pulse Ox O2 Delivery O2 Flow Rate FiO2 01/30/21 20:25 35.0 86 20 128/79 95 Nasal Cannula 6.00 01/30/21 02:10 50 Capillary Refill : Less Than 3 Seconds I&O Intake and Output 01/30/21 00:00 Intake Total 1470 ml Output Total 1205 ml Balance 265 ml Intake Oral 1470 ml Output Urine Total 1205 ml # Bowel Movements 1 General: Alert, Oriented X3, Cooperative, Mild Distress Lungs: Clear to Auscultation, Normal Air Movement Heart: Regular Rate, No Murmurs Abdomen: Normal Bowel Sounds, Soft, No Tenderness, No Masses Extremities: No Edema, No Tenderness/Swelling Neuro: Normal Speech, Strength at 5/5 X4 Ext, Cranial Nerves 3-12 NL Results/Procedures Lab Laboratory Tests 01/29/21 22:04: Glucometer 203H 01/30/21 06:33: Glucometer 182H 01/30/21 06:46: White Blood Count 10.1, Red Blood Count 5.18H, Hemoglobin 14.1, Hematocrit 45, Mean Corpuscular Volume 87, Mean Corpuscular Hemoglobin 27, Mean Corpuscular Hemoglobin Concent 31L, Red Cell Distribution Width 14.3, Platelet Count 373, Mean Platelet Volume 9.5, Immature Granulocyte % (Auto) 3, Neutrophils (%) (Auto) 67, Lymphocytes (%) (Auto) 23, Monocytes (%) (Auto) 5, Eosinophils (%) (Auto) 1, Basophils (%) (Auto) 0, Neutrophils # (Auto) 6.8, Lymphocytes # (Auto) 2.3, Monocytes # (Auto) 0.5, Eosinophils # (Auto) 0.1, Basophils # (Auto) 0.0, Immature Granulocyte # (Auto) 0.3H, Sodium Level 135, Potassium Level 4.1, Chloride Level 99, Carbon Dioxide Level 23, Anion Gap 13, Blood Urea Nitrogen 32H, Creatinine 0.95, Estimat Glomerular Filtration Rate 62, BUN/Creatinine Ratio 34, Glucose Level 161H, Calcium Level 9.6, Corrected Calcium 10.2H, Phosphorus Level 3.7, Magnesium Level 1.9, Total Bilirubin 0.5, Aspartate Amino Transf (AST/SGOT) 32, Alanine Aminotransferase (ALT/SGPT) 40, Alkaline Phosphatase 59, Total Protein 6.9, Albumin 3.3 01/30/21 12:11: Glucometer 313H 01/30/21 16:29: Glucometer 264H Microbiology 01/23/21 Blood Culture - Final, Complete No growth Assessment/Plan Assessment/Plan (1) Acute and chronic respiratory failure with hypoxia Status: Acute Assessment & Plan: 01/28: Will continue to titrate vapotherm as tolerated, MAT protocol, S/p Actrema, high dose steroids, Tele ICU helping with ICU management, appreciate recommendations, Encourage IS and proning 01/29: Continue to titrate oxygen need, PT/OT, patient to transfer to Med/Surg today 01/30: transitioned to high flow (2) Pneumonia due to COVID-19 virus Status: Acute (3) Hypercoagulable state associated with COVID-19 Status: Acute Assessment & Plan: - Lovenox (4) Uncontrolled diabetes mellitus Status: Chronic Assessment & Plan: 01/28: A1c 10.9, Started BID Levemir in addition to SSI 01/29: Increased Levemir today 15 units BID with SSI Qualifiers: Qualified Codes: E11.65 - Type 2 diabetes mellitus with hyperglycemia (5) BMI 50.0-59.9, adult Status: Chronic COLT MILLER MD Jan 30, 2021 21:38
[2021-01-31] MEDS: RT-ALBUTEROL HFA 8.5 GM INHALER IH SCH ×4 (02:24→14:49)
[2021-01-31] MEDS: inSUlin ASPART (NovoLOG) 1 UNIT/0.01 ML (CHARGE PER UNIT) SC SCH ×4 (05:14→21:24)
[2021-01-31] MEDS: dexAMETHasone 6 MG TAB (DECADRON) PO SCH (05:19)
[2021-01-31] MEDS: ENOXAPARIN 60 MG/0.6 ML (LOVENOX) SYR SC SCH ×2 (05:21→16:30)
[2021-01-31 05:53] LABS: BASOPHILS % (AUTO) 0 % (0-10); EOSINOPHILS # (AUTO) 0.1 10^3/uL (0.0-0.3); EOSINOPHILS % (AUTO) 1 % (0-10); HEMATOCRIT 44 % (35-52); HEMOGLOBIN 13.9 g/dL (11.5-16.0); LYMPHOCYTES # (AUTO) 2.2 10^3/uL (1.0-4.0); LYMPHOCYTES % (AUTO) 23 % (12-44); MEAN CORPUSCULAR HEMOGLOBIN 28 pg (25-34); MEAN CORPUSCULAR HGB CONC 32 g/dL (32-36); MEAN CORPUSCULAR VOLUME 88 fL (80-99); MEAN PLATELET VOLUME 9.1 fL (9.0-12.2); MONOCYTES # (AUTO) 0.7 10^3/uL (0.0-1.0); MONOCYTES % (AUTO) 7 % (0-12); NEUTROPHILS # (AUTO) 6.3 10^3/uL (1.8-7.8); NEUTROPHILS % (AUTO) 66 % (42-75); PLATELET COUNT 325 10^3/uL (130-400); WHITE BLOOD COUNT 9.6 10^3/uL (4.3-11.0)
[2021-01-31 06:04] LABS: ALBUMIN 3.2 GM/DL (3.2-4.5); POTASSIUM 4.2 MMOL/L (3.6-5.0)
[2021-01-31 06:05] LABS: CALCIUM 9.5 MG/DL (8.5-10.1)
[2021-01-31 06:07] LABS: TOTAL PROTEIN 6.5 GM/DL (6.4-8.2)
[2021-01-31 06:08] LABS: BILIRUBIN,TOTAL 0.5 MG/DL (0.1-1.0)
[2021-01-31 06:10] LABS: CREATININE SERUM 0.84 MG/DL (0.60-1.30); PHOSPHORUS 4.7 MG/DL (2.3-4.7)
[2021-01-31 06:13] LABS: MAGNESIUM 1.9 MG/DL (1.6-2.4)
[2021-01-31] MEDS: polyethylene glycoL POWDER 17 GM (MIRALAX) PACK PO SCH (08:16)
[2021-01-31] MEDS: PANTOPRAZOLE 40 MG (PROTONIX) TAB PO SCH (08:16)
[2021-01-31] MEDS: SENNOSIDES 8.6 MG (SENOKOT) TAB PO SCH (08:16)
[2021-01-31 18:25] VITALS: BP 135/79
--- NOTE | 2021-01-31 21:05 | Progress Note ---
Subjective Subjective/Events-last exam Patient doing much better this AM. Up in chair this morning. Tolerating PO diet and ambulation. Review of Systems Pulmonary: Dyspnea, Cough Cardiovascular: No: Chest Pain, Palpitations, Edema Gastrointestinal: No: Nausea, Vomiting, Abdominal Pain, Diarrhea, Constipation Neurological: Weakness Focused Exam Time of Focused Exam: 07:45 Objective Exam Last Set of Vital Signs Vital Signs Date Time Temp Pulse Resp B/P (MAP) Pulse Ox O2 Delivery O2 Flow Rate FiO2 01/31/21 18:25 35.3 76 95 21 01/31/21 16:00 20 135/79 Nasal Cannula 1.00 Capillary Refill : NONE I&O Intake and Output 01/31/21 00:00 Intake Total 2740 ml Output Total 1000 ml Balance 1740 ml Intake Oral 2730 ml IV Total 10 ml Output Urine Total 750 ml Post Void Residual 250 ml # Voids 9 # Bowel Movements 4 General: Alert, Oriented X3, No Acute Distress Lungs: Clear to Auscultation, Normal Air Movement Heart: Regular Rate, No Murmurs Abdomen: Normal Bowel Sounds, Soft, No Tenderness, No Masses Extremities: No Edema, No Tenderness/Swelling Neuro: Normal Speech, Sensation Intact, Cranial Nerves 3-12 NL Results/Procedures Lab Laboratory Tests 01/30/21 21:35: Glucometer 191H 01/31/21 05:13: Glucometer 126H 01/31/21 05:43: White Blood Count 9.6, Red Blood Count 5.00, Hemoglobin 13.9, Hematocrit 44, Mean Corpuscular Volume 88, Mean Corpuscular Hemoglobin 28, Mean Corpuscular Hemoglobin Concent 32, Red Cell Distribution Width 14.4, Platelet Count 325, Mean Platelet Volume 9.1, Immature Granulocyte % (Auto) 3, Neutrophils (%) (Auto) 66, Lymphocytes (%) (Auto) 23, Monocytes (%) (Auto) 7, Eosinophils (%) (Auto) 1, Basophils (%) (Auto) 0, Neutrophils # (Auto) 6.3, Lymphocytes # (Auto) 2.2, Monocytes # (Auto) 0.7, Eosinophils # (Auto) 0.1, Basophils # (Auto) 0.0, Immature Granulocyte # (Auto) 0.3H, Sodium Level 136, Potassium Level 4.2, Chloride Level 101, Carbon Dioxide Level 21, Anion Gap 14, Blood Urea Nitrogen 32H, Creatinine 0.84, Estimat Glomerular Filtration Rate 71, BUN/Creatinine Ratio 38, Glucose Level 119H, Calcium Level 9.5, Corrected Calcium 10.1, Phosphorus Level 4.7, Magnesium Level 1.9, Total Bilirubin 0.5, Aspartate Amino Transf (AST/SGOT) 30, Alanine Aminotransferase (ALT/SGPT) 43, Alkaline Phosphatase 53, Total Protein 6.5, Albumin 3.2 01/31/21 11:04: Glucometer 324H 01/31/21 16:06: Glucometer 318H 01/31/21 20:59: Glucometer 207H Microbiology 01/23/21 Blood Culture - Final, Complete No growth Assessment/Plan Assessment/Plan (1) Acute and chronic respiratory failure with hypoxia Status: Acute Assessment & Plan: 01/28: Will continue to titrate vapotherm as tolerated, MAT protocol, S/p Actrema, high dose steroids, Tele ICU helping with ICU management, appreciate recommendations, Encourage IS and proning 01/29: Continue to titrate oxygen need, PT/OT, patient to transfer to Med/Surg today 01/30: transitioned to high flow 01/31: Continue to titrate, home oxygen study done today (2) Pneumonia due to COVID-19 virus Status: Acute (3) Hypercoagulable state associated with COVID-19 Status: Acute Assessment & Plan: - Lovenox (4) Uncontrolled diabetes mellitus Status: Chronic Assessment & Plan: 01/28: A1c 10.9, Started BID Levemir in addition to SSI 01/29: Increased Levemir today 15 units BID with SSI Qualifiers: Qualified Codes: E11.65 - Type 2 diabetes mellitus with hyperglycemia (5) BMI 50.0-59.9, adult Status: Chronic COLT MILLER MD Jan 31, 2021 21:05
[2021-02-01] MEDS: inSUlin ASPART (NovoLOG) 1 UNIT/0.01 ML (CHARGE PER UNIT) SC SCH ×2 (05:07→12:40)
[2021-02-01] MEDS: ENOXAPARIN 60 MG/0.6 ML (LOVENOX) SYR SC SCH (05:08)
[2021-02-01] MEDS: dexAMETHasone 6 MG TAB (DECADRON) PO SCH (05:08)
[2021-02-01] MEDS: PANTOPRAZOLE 40 MG (PROTONIX) TAB PO SCH (08:14)
[2021-02-01] MEDS: polyethylene glycoL POWDER 17 GM (MIRALAX) PACK PO SCH (08:14)
[2021-02-01] MEDS: SENNOSIDES 8.6 MG (SENOKOT) TAB PO SCH (08:14)
--- NOTE | 2021-02-01 11:16 | Discharge Summary ---
Diagnosis/Chief Complaint Date of Admission Jan 23, 2021 at 13:06 Date of Discharge Discharge Diagnosis Problems/Diagnosis: (1) Acute and chronic respiratory failure with hypoxia Assessment & Plan: 01/28: Will continue to titrate vapotherm as tolerated, MAT protocol, S/p Actrema, high dose steroids, Tele ICU helping with ICU management, appreciate recommendations, Encourage IS and proning 01/29: Continue to titrate oxygen need, PT/OT, patient to transfer to Med/Surg today 01/30: transitioned to high flow 01/31: Continue to titrate, home oxygen study done today Status: Acute (2) Pneumonia due to COVID-19 virus Status: Acute (3) Hypercoagulable state associated with COVID-19 Assessment & Plan: - Lovenox Status: Acute (4) Uncontrolled diabetes mellitus Assessment & Plan: 01/28: A1c 10.9, Started BID Levemir in addition to SSI 01/29: Increased Levemir today 15 units BID with SSI Qualifiers: Qualified Codes: E11.65 - Type 2 diabetes mellitus with hyperglycemia Status: Chronic (5) BMI 50.0-59.9, adult Status: Chronic Discharge Summary-Simple/Stand Consultations Discharge Physical Examination Allergies: Coded Allergies: Sulfa (Sulfonamide Antibiotics) (Verified Allergy, Unknown, 01/23/21) cantaloupe (Verified Allergy, Unknown, 01/24/21) eucalyptus (Verified Allergy, Unknown, 01/23/21) latex (Verified Allergy, Unknown, 01/23/21) Vitals & I&Os Vital Sign - Last 12Hours Date Time Temp Pulse Resp B/P (MAP) Pulse Ox O2 Delivery O2 Flow Rate FiO2 02/01/21 08:00 92 High Flow N/C 1.00 02/01/21 07:45 35.2 71 20 132/81 01/31/21 18:25 21 Intake and Output 02/01/21 00:00 Intake Total 476 ml Balance 476 ml Hospital Course See final discharge diagnosis. Discharge Instructions to patient/family Please see electronic discharge instructions given to patient. Discharge Medications Reviewed and agree with Discharge Medication list on patient's Discharge Instruction sheet COLT MILLER MD Feb 01, 2021 11:16
[2021-02-01] MEDS ORDERED: INSU100V5 SQ (11:18)
[2021-02-01] MEDS ORDERED: DEXA2TAB PO (11:18)
--- NOTE | 2021-02-01 11:19 | Discharge Summary ---
Discharge [facility] Reconcile Patient Problems Problems Reviewed?: Yes Discharge Medications New, Converted or Re-Newed RX: Transmitted to Pharmacy New Medications: Dexamethasone (Dexamethasone) 2 Mg Tablet 2 MG PO DAILY, #6 TAB Take 1 tab x 4 days then 1/2 tab x 4 days Insulin Determir (Levemir) 1,000 Units/10 Ml Soln 10 UNIT SQ BID for 30 Days, EA Continued Medications: Cetirizine HCl (Zyrtec) 10 Mg Tablet 10 MG PO DAILY, TAB Patient Instructions Goal/Follow Up Appt: Jesse Joe in 1 week in [place] Patient Instructions: - Call clinic to get glucometer and strips Activity & Diet Discharge Diet: ADA Diet Activity as Tolerated: Yes COLT JOE MD Feb 01, 2021 11:19
[2021-02-01 15:30] VITALS: BP 136/74
== END 2021-02-01 15:30 | disposition home or self-care (01) | DRG 177 ==
LOC: ER 11:45 → CSD 13:06 → ICU 15:10 → 4TH 01-29 17:45
PROVIDERS: ADMIT Internal Medicine; ATTEND Family Medicine
PROC: 5A09457 Assistance with Respiratory Ventilation, 24-96 Consecutive Hours, Continuous Positive Airway Pressure (ICD-10-PCS; principal; 2021-01-25)
DX: U07.1 COVID-19 (principal); J12.82 Pneumonia due to coronavirus disease 2019; J80 Acute respiratory distress syndrome; Z68.43 Body mass index [BMI] 50.0-59.9, adult; D68.69 Other thrombophilia; Z88.2 Allergy status to sulfonamides; Z91.040 Latex allergy status; E66.01 Morbid (severe) obesity due to excess calories; Z87.891 Personal history of nicotine dependence; T38.0X5A Adverse effect of glucocorticoids and synthetic analogues, initial encounter; E11.65 Type 2 diabetes mellitus with hyperglycemia
CPT/HCPCS: 36415; 71045; 71275; 80053; 81000; 82947; 83036; 83605; 83735; 84100; 84145; 85025; 85379; 85610; 86141; 87040; 94640; 94660; 94760; 94761; 96361; 96374; 96375